=== PATIENT | male | born 1970 | race Caucasian/White ===

== ENCOUNTER 2016-10-25 07:16 | Day surgery (SDC) | payer OTHER ==
[2016-10-22 15:10] VITALS: BMI 36.2
[~2016-10-25 07:16] MED LIST: LACTATED RINGERS 1,000 ML IV SCH
[2016-10-25 07:45] VITALS: TEMP 97
[2016-10-25] MEDS ORDERED: LIDOCAINE 1% 20 ML VIAL (10MG/ML) FOR IV START INTRADERMA ONE (07:53)
[2016-10-25] MEDS ORDERED: PROPOFOL 10 MG/ML 20 ML VIAL IV ONE (08:00)
[2016-10-25 08:03] LABS: Glucose,Whole Blood 179 mg/dL (75-99)
--- NOTE | 2016-10-25 08:23 | P.PCN ---
Date of Procedure: 10/25/16 Procedure(s) Performed: BRIEF HISTORY: Patient is a 46-year-old pleasant white male, scheduled for an elective colonoscopy as a part of screening for colorectal neoplasia. He has a family history of colon cancer diagnosed in his mother at age 50. PROCEDURE PERFORMED: Colonoscopy. PREOPERATIVE DIAGNOSIS: Screening for colon cancer and family history of colon cancer. IV sedation per Anesthesia. PROCEDURE: After informed consent was obtained, the patient, was brought into the endoscopy unit. IV conscious sedation was administered by Anesthesia under continuous monitoring. Initially the Olympus CF-160 flexible video colonoscope was then inserted in the rectum, gradually advanced into the cecum without any difficulty. Careful examination was performed as the scope was gradually being withdrawn. Ileocecal valve and the appendiceal orifice were visualized and appeared normal. Prep was poor in some areas of the colon. Thorough irrigation was performed using irrigation system despite which multiple areas could not be adequately visualized. Mucosa of the cecum, ascending colon, transverse colon, descending colon, sigmoid colon, and rectum appeared normal. Retroflexion was performed in the rectum and no lesions were seen. The patient tolerated the procedure well. IMPRESSION: Normal-appearing colon from rectum to cecum with no evidence of colorectal neoplasia . Poor prep in some areas of the colon precluding adequate visualization. RECOMMENDATIONS: Findings of this examination were discussed with the patient as well as his family. He was advised to have a repeat screening colonoscopy in 5 years because of the family history of colon cancer.
[2016-10-25 08:46] VITALS: BP 137/82; PULSE 80; RESP 18
== END 2016-10-25 09:14 | disposition home or self-care (01) ==
LOC: ORWHC2ENDO 07:16
PROVIDERS: ATTEND Internal Medicine Gastroenterology
DX: Z12.11 Encounter for screening for malignant neoplasm of colon (principal); G47.33 Obstructive sleep apnea (adult) (pediatric); E11.9 Type 2 diabetes mellitus without complications; E07.9 Disorder of thyroid, unspecified; M10.9 Gout, unspecified; Z80.0 Family history of malignant neoplasm of digestive organs; Z79.84 Long term (current) use of oral hypoglycemic drugs; Z79.899 Other long term (current) drug therapy; Z87.891 Personal history of nicotine dependence
CPT/HCPCS: J2704; G0105; 99153

== ENCOUNTER 2023-03-07 18:22 | Inpatient (IN) | payer OTHER ==
[2023-03-07] MEDS ORDERED: VANCOMYCIN IV PER PHARMACY 1 EACH MISC MISCELLANE PRN (19:20)
[2023-03-07] MEDS ORDERED: SODIUM CHLORIDE 0.9% 500 ML 500 ML IV ONE (19:20)
[2023-03-07] MEDS ORDERED: PIPERACILLIN-TAZOBACTAM 3.375 GM in SODIUM CHLORIDE 0.9% 100 ML IVPB STA (19:23)
[2023-03-07] MEDS: SODIUM CHLORIDE 0.9% 1,000 ML IV SCH (19:37)
[2023-03-07 19:41] LABS: ALT 18 U/L (4-49); AST 26 U/L (17-59); African American GFR (CKD) 73 (>60 ml/min/1.73 sqM); Alkaline Phosphatase 52 U/L (38-126); Anion Gap 9 mmol/L; Blood Urea Nitrogen 23 mg/dL (9-20); Calcium 8.8 mg/dL (8.4-10.2); Carbon Dioxide 22 mmol/L (22-30); Chloride 100 mmol/L (98-107); Glucose 111 mg/dL (74-99); Non-African American GFR(CKD) 63 (>60 ml/min/1.73 sqM); Potassium 4.1 mmol/L (3.5-5.1); Sodium 131 mmol/L (137-145); Total Bilirubin 0.8 mg/dL (0.2-1.3); Total Protein 6.3 g/dL (6.3-8.2)
[2023-03-07 19:46] LABS: INR 1.1 (<1.2); Partial Thromboplastin Time 29.8 sec (22.0-30.0); Prothrombin Time 11.2 sec (9.0-12.0)
[2023-03-07 19:56] LABS: Basophils % (A) 0 %; Eosinophils % (A) 0 %; HCT 39.5 % (39.0-53.0); HGB 13.5 gm/dL (13.0-17.5); Lymphocytes # (A) 0.3 k/uL (1.0-4.8); Lymphocytes % (A) 5 %; MCH 30.4 pg (25.0-35.0); MCHC 34.3 g/dL (31.0-37.0); MCV 88.6 fL (80.0-100.0); Mean Platelet Volume 7.5; Monocytes # (A) 0.3 k/uL (0-1.0); Monocytes % (A) 5 %; Neutrophils # (A) 5.7 k/uL (1.3-7.7); Neutrophils % (A) 89 %; Platelet Count 120 k/uL (150-450); RBC 4.45 m/uL (4.30-5.90); RDW 13.6 % (11.5-15.5); WBC 6.4 k/uL (3.8-10.6)
--- NOTE | 2023-03-07 20:00 | XR ---
EXAMINATION TYPE: XR foot complete RT DATE OF EXAM: 03/07/2023 7:39 PM INDICATION: Patient age:Male; 52 years old; Reason for study: great toe infection; PHH. COMPARISON: None TECHNIQUE: The right foot was examined in the AP, oblique, and lateral projections. FINDINGS/IMPRESSION : Degeneration changes of the right first digit metacarpal phalangeal joint with osteophyte formation a nd joint space narrowing. There is posterior subluxation of the toe on lateral view. There is soft ti ssue swelling with subcutaneous gas no osseous erosion at this time to suggest osteomyelitis. No evid ence for fracture. Correlate for soft tissue infection.
[2023-03-07] MEDS ORDERED: NALOXONE 0.4 MG/ML 1 ML VIAL IV PRN (20:39)
[2023-03-07] MEDS ORDERED: HYDROmorphone 0.5 MG/0.5 ML SYRINGE IVP PRN (20:39)
[2023-03-07] MEDS ORDERED: ACETAMINOPHEN TAB 325 MG TAB PO PRN (20:39)
--- NOTE | 2023-03-07 20:45 | ED ---
General Adult HPI - General Chief complaint: Skin/Abscess/Foreign Body Stated complaint: infection R foot,Diabetic Time Seen by Provider: 03/07/23 19:02 Source: patient, RN notes reviewed, old records reviewed Mode of arrival: ambulatory Limitations: no limitations - History of Present Illness Initial comments: 52-year-old male presents for evaluation of right foot pain and swelling. Patient states he's had a chronic wound and does follow with podiatry. He states over the past 24 hours he had significant increased swelling and erythema in the great toe and foot on the right side. He denies fever. He is a diabetic. - Related Data Home Medications Medication Instructions Recorded Confirmed Aleve Unknown Dose 1 tab PO DIRECTED PRN 10/22/16 10/25/16 Levothyroxine Sodium [Synthroid] 150 mcg PO DAILY 10/22/16 10/25/16 Lopid Unknown Dose 1 tab PO BID 10/22/16 10/25/16 Magnesium Unknown Dose 2 tab PO BID 10/22/16 10/25/16 Potassium Unknown Dose 2 tab PO BID 10/22/16 10/25/16 allopurinoL [Zyloprim] 300 mg PO BID 10/22/16 10/25/16 glipiZIDE [Glucotrol] 10 mg PO BID 10/22/16 10/25/16 metFORMIN HCL [Glucophage] 850 mg PO TID 10/22/16 10/25/16 Allergies Allergy/AdvReac Type Severity Reaction Status Date / Time No Known Allergies Allergy Verified 03/07/23 18:34 Review of Systems ROS Statement: Those systems with pertinent positive or pertinent negative responses have been documented in the HPI. ROS Other: All systems not noted in ROS Statement are negative. Past Medical History Past Medical History: Diabetes Mellitus, Sleep Apnea/CPAP/BIPAP, Thyroid Disorder Additional Past Medical History / Comment(s): hx gout, states hyperstenosis of liver History of Any Multi-Drug Resistant Organisms: None Reported Past Surgical History: Cholecystectomy Past Anesthesia/Blood Transfusion Reactions: No Reported Reaction Past Psychological History: No Psychological Hx Reported Smoking Status: Never smoker Past Alcohol Use History: Rare Past Drug Use History: None Reported - Past Family History Mother Family Medical History: Cancer Additional Family Medical History / Comment(s): colon General Exam Limitations: no limitations General appearance: alert, in no apparent distress Head exam: Present: atraumatic, normocephalic Eye exam: Present: normal appearance, PERRL ENT exam: Present: normal exam Neck exam: Present: normal inspection. Absent: tenderness, meningismus Respiratory exam: Present: normal lung sounds bilaterally. Absent: respiratory distress, wheezes Cardiovascular Exam: Present: normal rhythm, tachycardia GI/Abdominal exam: Present: soft. Absent: distended, tenderness Extremities exam: Present: other (Ulceration on the dorsal and pedal surface of the great toe with significant erythema and soft tissue swelling throughout the great toe and foot.) Psychiatric exam: Present: normal affect, normal mood Skin exam: Present: warm, dry Course Vital Signs 03/07/23 18:30 Temperature 98.8 F Pulse Rate 118 H Respiratory 20 Rate Blood Pressure 114/70 O2 Sat by Pulse 96 Oximetry Medical Decision Making - Medical Decision Making Was pt. sent in by a medical professional or institution ([facility], [employer], urgent care, hospital, or retirement...) When possible be specific @ -[Sent in by urgent care Did you speak to anyone other than the patient for history (EMS, parent, family, police, friend...)? What history was obtained from this source @ -No Did you review nursing and triage notes (agree or disagree)? Why? @ -I reviewed and agree with nursing and triage notes Were old charts reviewed (outside hosp., previous admission, EMS record, old EKG, old radiological studies, urgent care reports/EKG's, retirement records)? Report findings @ -No old charts were reviewed Differential Diagnosis (chest pain, altered mental status, abdominal pain women, abdominal pain men, vaginal bleeding, weakness, fever, dyspnea, syncope, hea dache, dizziness, GI bleed, back pain, seizure, CVA, palpatations, mental health, musculoskeletal)? @ Cellulitis, osteomyelitis, necrotizing soft tissue infection EKG interpreted by me (3pts min.). @ -As above X-rays interpreted by me (1pt min.). @ -[Soft tissue swelling with soft tissue gas at the location of ulceration CT interpreted by me (1pt min.). @ -None done U/S interpreted by me (1pt. min.). @ -[Ultrasound for DVT negative for DVT What testing was considered but not performed or refused? (CT, X-rays, U/S, labs)? Why? @ -None What meds were considered but not given or refused? Why? @ -None Did you discuss the management of the patient with other professionals (professionals i.e. , PA, POURED PIPE MAKER, lab, RT, psych nurse, social science teacher, car shunter, teacher, seismology technical officer, residential case manager)? Give summary @ -[Case discussed with sound physician group Was smoking cessation discussed for >3mins.? @ -No Was critical care preformed (if so, how long)? @ -No Were there social determinants of health that impacted care today? How? (Homelessness, low income, unemployed, alcoholism, drug addiction, transportation, low edu. Level, literacy, decrease access to med. care, detention, rehab)? @ -No Was there de-escalation of care discussed even if they declined (Discuss DNR or withdrawal of care, Hospice)? DNR status @ -No What co-morbidities impacted this encounter? (DM, HTN, Smoking, COPD, CAD, Cancer, CVA, ARF, Chemo, Hep., AIDS, mental health diagnosis, sleep apnea, morbid obesity)? @ -[Diabetes Was patient admitted / discharged? Hospital course, mention meds given and route, prescriptions, significant lab abnormalities, going to OR and other pertinent info. @ -[52-year-old male with soft tissue infection of the right great toe and foot. Patient is tachycardic with otherwise stable vitals. He is afebrile. He has a normal white blood cell count, negative lactic acid. Patient will be admitted for IV antibiotics. He started on Zosyn and vancomycin. He'll be admitted to internal medicine with vascular surgery on consult. Undiagnosed new problem with uncertain prognosis? @ -No Drug Therapy requiring intensive monitoring for toxicity (Heparin, Nitro, Insulin, Cardizem)? @ -No Were any procedures done? @ -No Diagnosis/symptom? @ -[Diabetic foot infection with ulceration and cellulitis Acute, or Chronic, or Acute on Chronic? @ -[Acute Uncomplicated (without systemic symptoms) or Complicated (systemic symptoms)? @ -default Side effects of treatment? @ -No Exacerbation, Progression, or Severe Exacerbation? @ -No Poses a threat to life or bodily function? How? (Chest pain, USA, MA, pneumonia, PE, COPD, DKA, ARF, appy, cholecystitis, CVA, Diverticulitis, Homicidal, Suicidal, threat to staff... and all critical care pts) @ -Yes, sepsis - Lab Data Result diagrams: 03/07/23 19:15 03/07/23 19:15 Lab Results 03/07/23 03/07/23 03/07/23 Range/Units 19:15 19:15 19:15 WBC 6.4 (3.8-10.6) k/uL RBC 4.45 (4.30-5.90) m/uL Hgb 13.5 (13.0-17.5) gm/dL Hct 39.5 (39.0-53.0) % MCV 88.6 (80.0-100.0) fL MCH 30.4 (25.0-35.0) pg MCHC 34.3 (31.0-37.0) g/dL RDW 13.6 (11.5-15.5) % Plt Count 120 L (150-450) k/uL MPV 7.5 Neutrophils % 89 % Lymphocytes % 5 % Monocytes % 5 % Eosinophils % 0 % Basophils % 0 % Neutrophils # 5.7 (1.3-7.7) k/uL Lymphocytes # 0.3 L (1.0-4.8) k/uL Monocytes # 0.3 (0-1.0) k/uL Eosinophils # 0.0 (0-0.7) k/uL Basophils # 0.0 (0-0.2) k/uL PT 11.2 (9.0-12.0) sec INR 1.1 (<1.2) APTT 29.8 (22.0-30.0) sec Sodium 131 L (137-145) mmol/L Potassium 4.1 (3.5-5.1) mmol/L Chloride 100 (98-107) mmol/L Carbon Dioxide 22 (22-30) mmol/L Anion Gap 9 mmol/L BUN 23 H (9-20) mg/dL Creatinine 1.30 H (0.66-1.25) mg/dL Est GFR (CKD-EPI)AfAm 73 (>60 ml/min/1.73 sqM) Est GFR (CKD-EPI)NonAf 63 (>60 ml/min/1.73 sqM) Glucose 111 H (74-99) mg/dL Plasma Lactic Acid Pilo (0.7-2.0) mmol/L Calcium 8.8 (8.4-10.2) mg/dL Total Bilirubin 0.8 (0.2-1.3) mg/dL AST 26 (17-59) U/L ALT 18 (4-49) U/L Alkaline Phosphatase 52 (38-126) U/L Total Protein 6.3 (6.3-8.2) g/dL Albumin 4.0 (3.5-5.0) g/dL 03/07/23 Range/Units 19:15 WBC (3.8-10.6) k/uL RBC (4.30-5.90) m/uL Hgb (13.0-17.5) gm/dL Hct (39.0-53.0) % MCV (80.0-100.0) fL MCH (25.0-35.0) pg MCHC (31.0-37.0) g/dL RDW (11.5-15.5) % Plt Count (150-450) k/uL MPV Neutrophils % % Lymphocytes % % Monocytes % % Eosinophils % % Basophils % % Neutrophils # (1.3-7.7) k/uL Lymphocytes # (1.0-4.8) k/uL Monocytes # (0-1.0) k/uL Eosinophils # (0-0.7) k/uL Basophils # (0-0.2) k/uL PT (9.0-12.0) sec INR (<1.2) APTT (22.0-30.0) sec Sodium (137-145) mmol/L Potassium (3.5-5.1) mmol/L Chloride (98-107) mmol/L Carbon Dioxide (22-30) mmol/L Anion Gap mmol/L BUN (9-20) mg/dL Creatinine (0.66-1.25) mg/dL Est GFR (CKD-EPI)AfAm (>60 ml/min/1.73 sqM) Est GFR (CKD-EPI)NonAf (>60 ml/min/1.73 sqM) Glucose (74-99) mg/dL Plasma Lactic Acid Pilo 1.1 (0.7-2.0) mmol/L Calcium (8.4-10.2) mg/dL Total Bilirubin (0.2-1.3) mg/dL AST (17-59) U/L ALT (4-49) U/L Alkaline Phosphatase (38-126) U/L Total Protein (6.3-8.2) g/dL Albumin (3.5-5.0) g/dL Disposition Clinical Impression: Cellulitis, Diabetic foot infection Disposition: ADMITTED IP TO THIS HOSP Condition: Stable Is patient prescribed a controlled substance at d/c from ED?: No Referrals: Torrey Mancilla MD [Primary Care Provider] - 1-2 days Time of Disposition: 20:45
--- NOTE | 2023-03-07 20:56 | US ---
EXAMINATION TYPE: US venous doppler duplex LE RT DATE OF EXAM: 03/07/2023 8:28 PM COMPARISON: NONE CLINICAL INDICATION: Male, 52 years old with history of pain and swelling; redness/edema right great toe SIDE PERFORMED: Right TECHNIQUE: The lower extremity deep venous system is examined utilizing real time linear array sonog roger with graded compression, doppler sonography and color-flow sonography. VESSELS IMAGED: Common Femoral Vein Deep Femoral Vein Greater Saphenous Vein * Femoral Vein Popliteal Vein Small Saphenous Vein * Proximal Calf Veins (* superficial vessels) Right Leg: no evidence of DVT IMPRESSION: Grayscale, color doppler, spectral doppler imaging performed of the deep veins of the lo wer extremities. There is normal flow, compressibility, vascular waveforms.
[2023-03-07] MEDS ORDERED: VANCOMYCIN 2,500 MG in SODIUM CHLORIDE 0.9% 500 ML 500 ML IVPB ONE (21:00)
--- NOTE | 2023-03-07 22:54 | P.HPIM ---
History of Present Illness H&P Date: 03/07/23 Patient is a 52-year-old male with a PMH of type II DM, hypertension, hypothyroidism who presented to the emergency room with complaints of right foot swelling and right great toe ulceration. The patient reports that initially noticed an ulceration on his right great toe roughly 2 months ago which gradually worsened. He has been following with a metal riveter but states that over the past 2 days, the swelling dramatically increased. He reports that his last A1c was 6.5 but that he has been battling diabetes for the past 20 years. He denies experiencing any pain at the site. Denies experiencing fever or chills. Denied chest discomfort, shortness breath, nausea, vomiting. In the emergency room, a right foot x-ray revealed findings consistent with soft tissue swelling and subcutaneous gas without findings to suggest osteomyelitis or fracture. Venous Doppler of the right lower extremity was negative for DVT. Laboratory evaluation was remarkable for thrombocytopenia at 120, sodium 131, creatinine 1.3, lactic acid 1.1, and glucose 111. ED documentation reviewed and case discussed with ED provider. Review of systems: Pertinent positives and negatives as discussed in HPI, a complete review of systems was performed and all other systems are negative. Physical examination: Vital signs reviewed General: non toxic, no distress, appears at stated age, normal weight Derm: Right great toe medial aspect ulceration 2 cm with significant surrounding edema and erythema extending to mid foot, warm Head: atraumatic, normocephalic, symmetric Eyes: EOMI, no lid lag, anicteric sclera, pupils equal round reactive to light ENT: Nose and ears atraumatic Neck: No cervical lymphadenopathy, trachea midline, supple Mouth: no lip lesion, mucus membranes moist Cardiovascular: S1S2 reg, no murmur, positive dorsalis pedis pulse bilateral, 1+ ryanne LE pitting edema Lungs: CTA bilateral, no rhonchi, no rales, no accessory muscle use Abdominal: soft, nontender to palpation, no guarding Ext: muscle strength 5 out of 5 in all 4 extremities grossly, no gross muscle atrophy, no contractures Neuro: CN II-XI grossly intact, no gross focal neuro deficits Psych: Alert, oriented, appropriate affect Assessment: Diabetic foot ulcer Thrombocytopenia, somewhat worse than baseline Hyponatremia Kidney injury Imaging: In the emergency room, a right foot x-ray revealed findings consistent with soft tissue swelling and subcutaneous gas without findings to suggest osteomyelitis or fracture. Venous Doppler of the right lower extremity was negative for DVT. Data Review: Laboratory evaluation was remarkable for thrombocytopenia at 120, sodium 131, creatinine 1.3, lactic acid 1.1, and glucose 111. Plan: Vascular surgery consulted Follow-up blood cultures Continue with broad-spectrum IV antibiotics including IV Zosyn and vancomycin Pain control with Dilaudid Monitor BMP and CBC. DVT prophylaxis: Lovenox subq The patient is admitted with an anticipated greater than 2 midnight stay for evaluation of diabetic foot ulcer CODE STATUS: Full Code Discussed with: Patient Anticipated discharge place: Home Past Medical History Past Medical History: Diabetes Mellitus, Sleep Apnea/CPAP/BIPAP, Thyroid Disorder Additional Past Medical History / Comment(s): hx gout, states hyperstenosis of liver History of Any Multi-Drug Resistant Organisms: None Reported Past Surgical History: Cholecystectomy Past Anesthesia/Blood Transfusion Reactions: No Reported Reaction Past Psychological History: No Psychological Hx Reported Smoking Status: Never smoker Past Alcohol Use History: Rare Past Drug Use History: None Reported - Past Family History Mother Family Medical History: Cancer Additional Family Medical History / Comment(s): colon Medications and Allergies Home Medications Medication Instructions Recorded Confirmed Type metFORMIN HCL [Glucophage] 850 mg PO TID-W/MEALS 10/22/16 03/07/23 History Acetaminophen [Tylenol Extra 1,000 mg PO Q6H PRN 03/07/23 03/07/23 History Strength] Empagliflozin [Jardiance] 10 mg PO DAILY 03/07/23 03/07/23 History Insulin Glargine,Hum.rec.anlog 12 unit SQ HS 03/07/23 03/07/23 History [Andrea Pedraza U-100] Insulin Regular, Human [Novolin R] See Protocol SQ TID-W/MEALS 03/07/23 03/07/23 History Levothyroxine Sodium [Synthroid] 200 mcg PO DAILY 03/07/23 03/07/23 History Magnesium Oxide [Mag-Ox] 400 mg PO DAILY 03/07/23 03/07/23 History Naproxen Sodium [Aleve] 440 mg PO BID PRN 03/07/23 03/07/23 History Pioglitazone [Actos] 45 mg PO DAILY 03/07/23 03/07/23 History lisinopriL [Prinivil] 20 mg PO DAILY 03/07/23 03/07/23 History Allergies Allergy/AdvReac Type Severity Reaction Status Date / Time No Known Allergies Allergy Verified 03/07/23 20:45 Physical Exam Vitals: Vital Signs Temp Pulse Resp BP Pulse Ox 03/07/23 18:30 98.8 F 118 H 20 114/70 96 Intake and Output 03/07/23 03/07/23 03/07/23 06:59 14:59 22:59 Other: Weight 122.47 kg Results CBC & Chem 7: 03/07/23 19:15 03/07/23 19:15 Labs: Abnormal Lab Results - Last 24 Hours (Table) 03/07/23 03/07/23 Range/Units 19:15 19:15 Plt Count 120 L (150-450) k/uL Lymphocytes # 0.3 L (1.0-4.8) k/uL Sodium 131 L (137-145) mmol/L BUN 23 H (9-20) mg/dL Creatinine 1.30 H (0.66-1.25) mg/dL Glucose 111 H (74-99) mg/dL
[2023-03-08] MEDS: PIPERACILLIN-TAZOBACTAM 3.375 GM in SODIUM CHLORIDE 0.9% 100 ML IVPB SCH ×3 (02:09→17:10)
[2023-03-08] MEDS: SODIUM CHLORIDE 0.9% 1,000 ML IV SCH ×2 (03:25→13:08)
[2023-03-08] MEDS: VANCOMYCIN 2,250 MG in SODIUM CHLORIDE 0.9% 500 ML 500 ML IVPB SCH ×2 (07:53→21:13)
[2023-03-08 08:03] LABS: Glucose,Whole Blood 155 mg/dL (70-110)
[2023-03-08] MEDS: ENOXAPARIN 40 MG/0.4 ML SYRINGE SQ SCH (09:09)
--- NOTE | 2023-03-08 13:19 | P.GSCN ---
History of Present Illness Consult date: 03/08/23 History of present illness: Colin is a 52-year-old male with diabetes who has had injury and issue to his right lower extremity back in 2020. He got his forefoot crushed, at that time he has been dealing with issues and concerns since then. Apparently there was no broken bones or fragments that he relates at that time however he ended up with wounds that it had continued issues healing. Initially it started to get healed and then in the fall of last year, he had interruption of the wound itself and discomfort and therefore ended up with imaging and reported oste omyelitis per the patient. He was given PICC line antibiotics and other the wound was healing. 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 He denies any significant pain and has some degree of neuropathy. He denies any fevers, chills, nausea or vomiting Past Medical History Past Medical History: Diabetes Mellitus, Sleep Apnea/CPAP/BIPAP, Thyroid Disorder Additional Past Medical History / Comment(s): hx gout, states hyperstenosis of liver History of Any Multi-Drug Resistant Organisms: None Reported Past Surgical History: Cholecystectomy Past Anesthesia/Blood Transfusion Reactions: No Reported Reaction Past Psychological History: No Psychological Hx Reported Smoking Status: Never smoker Past Alcohol Use History: Rare Past Drug Use History: None Reported - Past Family History Mother Family Medical History: Cancer Additional Family Medical History / Comment(s): colon Medications and Allergies Home Medications Medication Instructions Recorded Confirmed Type metFORMIN HCL [Glucophage] 850 mg PO TID-W/MEALS 10/22/16 03/07/23 History Acetaminophen [Tylenol Extra 1,000 mg PO Q6H PRN 03/07/23 03/07/23 History Strength] Empagliflozin [Jardiance] 10 mg PO DAILY 03/07/23 03/07/23 History Insulin Glargine,Hum.rec.anlog 12 unit SQ HS 03/07/23 03/07/23 History [Andrea Pedraza U-100] Insulin Regular, Human [Novolin R] See Protocol SQ TID-W/MEALS 03/07/23 03/07/23 History Levothyroxine Sodium [Synthroid] 200 mcg PO DAILY 03/07/23 03/07/23 History Magnesium Oxide [Mag-Ox] 400 mg PO DAILY 03/07/23 03/07/23 History Naproxen Sodium [Aleve] 440 mg PO BID PRN 03/07/23 03/07/23 History Pioglitazone [Actos] 45 mg PO DAILY 03/07/23 03/07/23 History lisinopriL [Prinivil] 20 mg PO DAILY 03/07/23 03/07/23 History Allergies Allergy/AdvReac Type Severity Reaction Status Date / Time No Known Allergies Allergy Verified 03/07/23 20:45 Surgical - Exam Vital Signs Temp Pulse Resp BP Pulse Ox 98.8 F 118 H 20 114/70 96 03/07/23 18:30 03/07/23 18:30 03/07/23 18:30 03/07/23 18:30 03/07/23 18:30 Gen. is a pleasant and cooperative male in no acute distress. HEENT is normal cephalic, atraumatic, excellent motion intact. Heart appears regular. Lungs are clear. Abdomen soft. Some additional clubbing or cyanosis. The right great toe is significantly bulbous with erythema in the forefoot. There is a wound with eschar at the plantar portion and a wound with eschar at the dorsum of the great toe. No fluctuance. No purulent drainage. Palpable DP PT pulses. With informed verbal consent, the right great toe was prepped and draped in usual sterile fashion. A preprocedure timeout was performed, all parties are in agreement. Using a scalpel, the eschar was excised from the dorsum of the great toe revealing some chronically infected appearing tissue. This was excised. This did not seem to tunnel our track anywhere, it was approximately 0.5 x 0.5 x 0.7 cm to the level of the subcutaneous tissue after completion of debridement. On the plantar portion of the foot, there was moderate amount of callus. This was excised sharply. The wound itself was a debridement of his eschar and tissue. It was relatively superficial through the dermis tissue, it measured 1.5 x 0.3 x 0.3. It did not appear to tunnel our track in any direction. Dressings were placed. The patient tolerated the procedure well. Results Labs and x-ray reviewed. The area of reported gas on x-ray is in correlation wi th the area of ulceration at the dorsum of the great toe. No crepitus or other evidence of gas on physical exam - Labs 03/07/23 19:15 03/07/23 19:15 Abnormal Lab Results - Last 24 Hours (Table) 03/07/23 03/07/23 03/08/23 Range/Units 19:15 19:15 08:01 Plt Count 120 L (150-450) k/uL Lymphocytes # 0.3 L (1.0-4.8) k/uL Sodium 131 L (137-145) mmol/L BUN 23 H (9-20) mg/dL Creatinine 1.30 H (0.66-1.25) mg/dL Glucose 111 H (74-99) mg/dL POC Glucose (mg/dL) 155 H (70-110) mg/dL Diabetes panel 03/07/23 Range/Units 19:15 Sodium 131 L (137-145) mmol/L Potassium 4.1 (3.5-5.1) mmol/L Chloride 100 (98-107) mmol/L Carbon Dioxide 22 (22-30) mmol/L BUN 23 H (9-20) mg/dL Creatinine 1.30 H (0.66-1.25) mg/dL Glucose 111 H (74-99) mg/dL Calcium 8.8 (8.4-10.2) mg/dL AST 26 (17-59) U/L ALT 18 (4-49) U/L Alkaline Phosphatase 52 (38-126) U/L Total Protein 6.3 (6.3-8.2) g/dL Albumin 4.0 (3.5-5.0) g/dL Calcium panel 03/07/23 Range/Units 19:15 Calcium 8.8 (8.4-10.2) mg/dL Albumin 4.0 (3.5-5.0) g/dL Pituitary panel 03/07/23 Range/Units 19:15 Sodium 131 L (137-145) mmol/L Potassium 4.1 (3.5-5.1) mmol/L Chloride 100 (98-107) mmol/L Carbon Dioxide 22 (22-30) mmol/L BUN 23 H (9-20) mg/dL Creatinine 1.30 H (0.66-1.25) mg/dL Glucose 111 H (74-99) mg/dL Calcium 8.8 (8.4-10.2) mg/dL Adrenal panel 03/07/23 Range/Units 19:15 Sodium 131 L (137-145) mmol/L Potassium 4.1 (3.5-5.1) mmol/L Chloride 100 (98-107) mmol/L Carbon Dioxide 22 (22-30) mmol/L BUN 23 H (9-20) mg/dL Creatinine 1.30 H (0.66-1.25) mg/dL Glucose 111 H (74-99) mg/dL Calcium 8.8 (8.4-10.2) mg/dL Total Bilirubin 0.8 (0.2-1.3) mg/dL AST 26 (17-59) U/L ALT 18 (4-49) U/L Alkaline Phosphatase 52 (38-126) U/L Total Protein 6.3 (6.3-8.2) g/dL Albumin 4.0 (3.5-5.0) g/dL Assessment and Plan Assessment: Diabetic foot infection right great toe History of osteomyelitis, likely chronic recurrent at this point Diabetes Plan: I had a long discussion with Colin regarding the likelihood of there being chronic osteomyelitis in the great toe, I do believe further imaging is necessary to evaluate for ongoing recommendations. He needs infectious disease consultation as he will likely need long-term IV antibiotics regardless of going forward with amputation or continued attempt at salvage. We discussed the possibility of being aggressive with local wound care, possible hyperbaric oxygen therapy here at the [facility] wound care facility. He would like to try anything he can as he is very hesitant to undergo toe amputation, at this time there is no emergent surgical indication. Would consider MRI of the foot to evaluate the bony involvement and extent of the infection. At this time continue IV antibiotics. Patient seemingly understands the plan and is willing to proceed.
[2023-03-08] MEDS ORDERED: DEXTROSE 50% SYRINGE 50 ML IVP PRN ×2 (15:36)
--- NOTE | 2023-03-08 15:50 | P.PN ---
Subjective Progress Note Date: 03/08/23 Hospital course: Patient is a very pleasant 52-year-old male with a past medical history of type 2 insulin-dependent diabetes mellitus, hypertension, hypothyroidism, and obstructive sleep apnea. 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 Patient underwent full evaluation in the emergency department. Labs completed and reviewed. CBC showing thrombocytopenia with bili count of 120. Coagulation profile normal findings. BMP revealing mild hyponatremia with sodium of 131 and slight elevation of renal function with BUN 23, creatinine 1.30, and GFR of 63 with baseline creatinine of 1.1. Lactic acid normal findings at 1.1. Glucose 111. Liver profile unremarkable. X-ray right foot showing degenerative changes of the right first digit metacarpal phalangeal joint with osteophyte formation and joint space narrowing, posterior subluxation of the right great toe and soft tissue swelling with subcutaneous gas. Venous Doppler also completed of right lower extremity which was negative for DVT. Patient was started on IV ant ibiotics of vancomycin and Zosyn and admitted under our services with consultation to vascular surgery. Physical examination: General: non toxic, no distress, appears at stated age Derm: warm, dry Head: atraumatic, normocephalic, symmetric Eyes: EOMI, no lid lag, anicteric sclera Mouth: no lip lesion, mucus membranes moist Cardiovascular: S1S2 reg, no murmur, positive posterior tibial pulse bilateral, Lungs: CTA bilateral, no rhonchi, no rales , no accessory muscle use Abdominal: soft, nontender to palpation, no guarding, no appreciable organomegaly Ext: no gross muscle atrophy, 1+ pitting bilateral lower extremity edema, no contractures. Dressing in place right foot, clean, dry, and intact. Neuro: CN II-XI grossly intact, no focal neuro deficits Psych: Alert, oriented, appropriate affect Assessment: Infected Diabetic ulcer of right foot Thrombocytopenia, somewhat worse than baseline Hyponatremia Insulin-dependent diabetes mellitus -Vascular surgery following and reviewed documentation in chart. -Order placed for consult infectious disease. -Continue with IV antibiotics vancomycin and Zosyn pending further recommendations from infectious disease physician and/or culture results. -Monitor vancomycin trough and renal function closely to monitor for any signs of vancomycin associated renal toxicity. -Follow-up on blood culture and wound culture -Symptomatic care and pain management. Data Review: Labs completed and reviewed. CBC showing thrombocytopenia with bili count of 120. Coagulation profile normal findings. BMP revealing mild hyponatremia with sodium of 131 and slight elevation of renal function with BUN 23, creatinine 1.30, and GFR of 63 with baseline creatinine of 1.1. Lactic acid normal findings at 1.1. Glucose 111. Liver profile unremarkable. Review of imaging: -X-ray right foot showing degenerative changes of the right first digit metacarpal phalangeal joint with osteophyte formation and joint space narrowing, posterior subluxation of the right great toe and soft tissue swelling with subcutaneous gas. -Venous Doppler also completed of right lower extremity which was negative for DVT. DVT prophylaxis: Lovenox Anticipated discharge: Clinical course to determine Anticipated discharge place: Home Patient was seen independently by Nurse Pracitioner. This document was prepared using [email or web address] dictation software. Please allow for errors in health promotion manager, while rare they do occur. I reviewed the documentation as provided by the SHANNAN above, who is the original author of this note. I agree with the documented assessment and plan, with the following changes: none Objective - Vital Signs Vital signs: Vital Signs Temp 98.8 F 03/07/23 18:30 Pulse 90 03/08/23 06:00 Resp 18 03/08/23 06:00 BP 105/66 03/08/23 06:00 Pulse Ox 96 03/08/23 06:00 FiO2 Intake & Output 03/07/23 03/08/23 03/08/23 18:59 06:59 18:59 Weight 122.47 kg - Labs CBC & Chem 7: 03/09/23 05:32 03/10/23 06:29 Labs: Abnormal Lab Results - Last 24 Hours (Table) 03/07/23 03/07/23 03/08/23 Range/Units 19:15 19:15 08:01 Plt Count 120 L (150-450) k/uL Lymphocytes # 0.3 L (1.0-4.8) k/uL Sodium 131 L (137-145) mmol/L BUN 23 H (9-20) mg/dL Creatinine 1.30 H (0.66-1.25) mg/dL Glucose 111 H (74-99) mg/dL POC Glucose (mg/dL) 155 H (70-110) mg/dL
[2023-03-08 16:48] LABS: Glucose,Whole Blood 161 mg/dL (70-110)
[2023-03-08] MEDS: INSULIN ASPART (NovoLOG) 100 UNIT/ML VIAL SQ SCH ×2 (17:09→21:12)
[2023-03-08 20:39] LABS: Glucose,Whole Blood 185 mg/dL (70-110)
[2023-03-08] MEDS: INSULIN DETEMIR (LEVEMIR) 100 UNIT/ML SYR SQ SCH (21:13)
--- NOTE | 2023-03-08 22:19 | P.CONS ---
History of Present Illness - Reason for Consult Consult date: 03/08/23 Osteomyelitis Requesting physician: Ronny Coleman - Chief Complaint Increasing swelling redness to the right foot x few days - History of Present Illness Patient is a 52-year-old male with a past medical history significant for diabetes mellitus hypertension hypothyroidism presenting to the hospital for evaluation of increasing swelling and redness to the right foot especially to the right big toe apparently the patient did have ulceration on the right big toe that has been going on for about 2 months and the patient has been 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 however over the last 2 days the patient noticed having worsening swelling and redness that was spreading to his right foot patient did have underlying diabetic neuropathy has denies significant pain patient did have some did denies high-grade fever on presentation to the hospital the patient was afebrile he did have a low-grade fever of 99.2 F this morning patient did have a normal white count BUN and creatinine has been mildly elevated lactic is 1.1 liver exams are normal patient did have an x-ray of the foot degenerative changes of the right first digit metacarpophalangeal joint soft tissue swelling with subcutaneous gas no evidence of fracture patient was started on vancomycin and Zosyn infectious disease was consulted for further management of antibiotic therapy Review of Systems Positive point and negatives has been mentioned in the HPI, complete review of systems was performed and all other systems are negative Past Medical History Past Medical History: Diabetes Mellitus, Sleep Apnea/CPAP/BIPAP, Thyroid Disorde r Additional Past Medical History / Comment(s): hx gout, states hyperstenosis of liver History of Any Multi-Drug Resistant Organisms: None Reported Past Surgical History: Cholecystectomy Past Anesthesia/Blood Transfusion Reactions: No Reported Reaction Past Psychological History: No Psychological Hx Reported Smoking Status: Never smoker Past Alcohol Use History: Rare Past Drug Use History: None Reported - Past Family History Mother Family Medical History: Cancer Additional Family Medical History / Comment(s): colon Medications and Allergies Home Medications Medication Instructions Recorded Confirmed Type metFORMIN HCL [Glucophage] 850 mg PO TID-W/MEALS 10/22/16 03/07/23 History Acetaminophen [Tylenol Extra 1,000 mg PO Q6H PRN 03/07/23 03/07/23 History Strength] Empagliflozin [Jardiance] 10 mg PO DAILY 03/07/23 03/07/23 History Insulin Glargine,Hum.rec.anlog 12 unit SQ HS 03/07/23 03/07/23 History [Varinderaglskye Pedraza U-100] Insulin Regular, Human [Novolin R] See Protocol SQ TID-W/MEALS 03/07/23 03/07/23 History Levothyroxine Sodium [Synthroid] 200 mcg PO DAILY 03/07/23 03/07/23 History Magnesium Oxide [Mag-Ox] 400 mg PO DAILY 03/07/23 03/07/23 History Naproxen Sodium [Aleve] 440 mg PO BID PRN 03/07/23 03/07/23 History Pioglitazone [Actos] 45 mg PO DAILY 03/07/23 03/07/23 History lisinopriL [Prinivil] 20 mg PO DAILY 03/07/23 03/07/23 History metroNIDAZOLE [Flagyl] 500 mg PO TID #90 tab 03/11/23 Rx Allergies Allergy/AdvReac Type Severity Reaction Status Date / Time No Known Allergies Allergy Verified 03/07/23 20:45 Physical Exam Vitals: Vital Signs Temp Pulse Pulse Resp BP BP Pulse Ox 03/08/23 13:57 99.2 F 89 18 129/72 95 03/08/23 13:05 97.8 F 99 18 116/63 95 03/08/23 09:22 70 18 106/64 98 03/08/23 06:00 90 18 105/66 96 03/08/23 02:38 96 18 109/59 97 03/08/23 00:05 82 14 112/66 98 03/07/23 18:30 98.8 F 118 H 20 114/70 96 Intake and Output 03/08/23 03/08/23 03/08/23 06:59 14:59 22:59 Intake Total 118 Balance 118 Intake: Oral 118 Other: # Voids 1 Weight 122.47 kg GENERAL DESCRIPTION: Middle-aged male lying in bed, no distress. No tachypnea or accessory muscle of respiration use. HEENT: Shows Pallor , no scleral icterus. Oral mucous membrane is dry. No pharyngeal erythema or thrush NECK: Trachea central, no thyromegaly. LUNGS: Unlabored breathing. Clear to auscultation anteriorly. No wheeze or crackle. HEART: S1, S2, regular rate and rhythm. No loud murmur ABDOMEN: Soft, no tenderness , guarding or rigidity, no organomegaly EXTREMITIES: Right foot that has swelling redness with ulceration on the plantar aspect at the base of the big toe foul-smelling drainage SKIN: No rash, no masses palpable. NEUROLOGICAL: The patient is awake, alert, oriented x3, mood and affect normal. Results CBC & Chem 7: 03/11/23 05:49 03/11/23 05:49 Labs: Abnormal Lab Results - Last 24 Hours (Table) 03/07/23 03/07/23 03/08/23 Range/Units 19:15 19:15 08:01 Plt Count 120 L (150-450) k/uL Lymphocytes # 0.3 L (1.0-4.8) k/uL Sodium 131 L (137-145) mmol/L BUN 23 H (9-20) mg/dL Creatinine 1.30 H (0.66-1.25) mg/dL Glucose 111 H (74-99) mg/dL POC Glucose (mg/dL) 155 H (70-110) mg/dL 03/08/23 Range/Units 16:46 Plt Count (150-450) k/uL Lymphocytes # (1.0-4.8) k/uL Sodium (137-145) mmol/L BUN (9-20) mg/dL Creatinine (0.66-1.25) mg/dL Glucose (74-99) mg/dL POC Glucose (mg/dL) 161 H (70-110) mg/dL Assessment and Plan (1) Diabetic foot infection Status: Acute Code(s): E11.628 - TYPE 2 DIABETES MELLITUS WITH OTHER SKIN COMPLICATIONS; L08.9 - LOCAL INFECTION OF THE SKIN AND SUBCUTANEOUS TISSUE, UNSP SNOMED Code(s): 763420185 (2) Osteomyelitis Status: Acute Code(s): M86.9 - OSTEOMYELITIS, UNSPECIFIED SNOMED Code(s): 23505396 Plan: 1patient with extensive right diabetic foot infection with with significant swelling and redness of the right great toe with erythema extending to the dorsal aspect of the right foot with rapid progression is highly suspicious for gram-positive/chest streptococcal infection 2-patient would benefit from CT admission evidence of any abscess that may need to be drained 3-continue patient on vancomycin however discontinue Zosyn decrease risk of ne phrotoxicity and add Unasyn to cover for the gram-negative anaerobes 4-check inflammatory markers We will follow on clinical condition and cultures to further adjust medication if needed Thank you for this consultation we will follow the patient along with you Time with Patient: Greater than 30
[2023-03-09] MEDS: AMPICILLIN-SULBACTAM 3 GM in SODIUM CHLORIDE 0.9% 100 ML IVPB SCH ×4 (00:36→17:00)
[2023-03-09] MEDS: SODIUM CHLORIDE 0.9% 1,000 ML IV SCH ×3 (04:57→05:33)
[2023-03-09 06:39] LABS: Glucose,Whole Blood 143 mg/dL (70-110)
[2023-03-09] MEDS: INSULIN ASPART (NovoLOG) 100 UNIT/ML VIAL SQ SCH ×4 (06:44→22:54)
[2023-03-09] MEDS: ENOXAPARIN 40 MG/0.4 ML SYRINGE SQ SCH (08:59)
[2023-03-09] MEDS: VANCOMYCIN 2,250 MG in SODIUM CHLORIDE 0.9% 500 ML 500 ML IVPB SCH ×2 (08:59→20:25)
[2023-03-09] MEDS: LEVOTHYROXINE 100 MCG TAB PO SCH (08:59)
[2023-03-09] MEDS: lisinopriL 20 MG TAB PO SCH (08:59)
[2023-03-09] MEDS: DAPAGLIFLOZIN PROPANEDIOL 10 MG TABLET PO SCH (08:59)
[2023-03-09 09:18] LABS: HCT 37.5 % (39.6-50.0); HGB 12.2 d/dL (12.0-15.0); MCHC 32.5 d/dL (32.0-37.0); MCV 92.4 FL (80.0-97.0); Mean Platelet Volume 9.4 FL (9.5-12.2); NRBC Per 100 WBC 0 X 10*3/uL (0.00-0.01); Platelet Count 114 X 10*3/uL (140-440); RBC 4.06 X 10*6/uL (4.40-5.60); RDW 13.1 % (11.5-14.5); WBC 4.45 X 10*3/uL (4.50-10.00)
[2023-03-09 09:33] LABS: ALT 11 U/L (10-49); AST 12 U/L (14-35); Albumin 3.6 d/dL (3.8-4.9); Albumin/Globulin Ratio 1.71 Ratio (1.60-3.17); Alkaline Phosphatase 54 U/L (41-126); BUN/Creat Ratio 16.31 Ratio (12.00-20.00); Blood Urea Nitrogen 21.2 mg/dL (9.0-27.0); Calcium 9.1 mg/dL (8.7-10.3); Carbon Dioxide 23.4 mmol/L (21.6-31.8); Chloride 104 mmol/L (96-109); Globulin 2.1 d/dL (1.6-3.3); Glucose 149 mg/dL (70-110); Potassium 5.1 mmol/L (3.5-5.5); Sodium 137 mmol/L (135-145); Total Bilirubin 0.3 mg/dL (0.3-1.2); Total Protein 5.7 d/dL (6.2-8.2)
[2023-03-09 09:51] LABS: Erythrocyte Sedimentation Rate 52 mm/Hr (0-20)
[2023-03-09 11:43] LABS: Glucose,Whole Blood 178 mg/dL (70-110)
--- NOTE | 2023-03-09 16:16 | CT ---
EXAMINATION TYPE: CT foot RT wo con CT DLP: 356.8 mGycm, Automated exposure control for dose reduction was used. DATE OF EXAM: 03/09/2023 9:57 AM COMPARISON: Extremity radiograph 03/07/2023 CLINICAL INDICATION:Male, 52 years old with history of abscess; PHH, abscess of RT foot, pt diabetic TECHNIQUE: Axial images were obtained of the right foot . Additional coronal and sagittal reformatte d images and soft tissue and bone window were obtained for review. 3-D reconstruction was created on a separate workstation. Contrast used: None Oral contrast used: None FINDINGS: There is posterior subluxation/dislocation of the first digit metatarsophalangeal joint. There is ass ociated degeneration changes of the sesamoids with subchondral cystic change and irregularity to the first metatarsal head with some areas of ill-defined cortex most pronounced on the first and second d igits. Soft tissue edema is seen throughout and surrounding the first digit. Suspected underlying brennan nt effusion involving the first digit metatarsophalangeal joint. Second digit metatarsophalangeal brennan nt is also suspicious for joint effusion and erosion of the adjacent cortex. Series 204 image 66 for the second digit metatarsal head and series 204 image 64 for the first digit metatarsal head. There i s erosive change to the first digit proximal phalanx also present on these sequences series 204 image 63, 64. No definitive organizing fluid collection to suggest abscess given this noncontrast exam. Osteoporosi s changes throughout the joints of the foot with osteophyte formation joint space narrowing. IMPRESSION: 1. Suspected osteomyelitis involving the first and second digit metatarsals near the heads also susp ected involvement of the first and second digit metatarsophalangeal joints. Subtle erosive changes to the first digit phalanx base also suggestive of osteomyelitis. Soft tissue swelling around these brennan nts more pronounced on the first digit is present. 2. Posterior subluxation/dislocation of the first digit at the metatarsophalangeal joint. 3. Limit evaluation for abscess given noncontrast technique. Consider evaluation with MRI given diff use soft tissue edema swelling.
--- NOTE | 2023-03-09 16:18 | P.PN ---
Subjective Progress Note Date: 03/09/23 Hospital course: Patient is a very pleasant 52-year-old male with a past medical history of type 2 insulin-dependent diabetes mellitus, hypertension, hypothyroidism, and obstructive sleep apnea. Her department on 03/07/23 with a chief complaint of right foot pain, swelling, and infection reported to progressively worsen over the past 2 months despite outpatient treatment with director on air. Patient underwent full evaluation in the emergency department. Labs completed and reviewed. CBC showing thrombocytopenia with bili count of 120. Coagulation profile normal findings. BMP revealing mild hyponatremia with sodium of 131 and slight elevation of renal function with BUN 23, creatinine 1.30, and GFR of 63 with baseline creatinine of 1.1. Lactic acid normal findings at 1.1. Glucose 111. Liver profile unremarkable. X-ray right foot showing degenerative changes of the right first digit metacarpal phalangeal joint with osteophyte formation and joint space narrowing, posterior subluxation of the right great toe and soft tissue swelling with subcutaneous gas. Venous Doppler also completed of right lower extremity which was negative for DVT. Patient was started on IV ant ibiotics of vancomycin and Zosyn and admitted under our services with consultation to vascular surgery. Physical examination: Patient seen and fully evaluated at bedside this morning. Patient slightly anxious regarding plan of care at this time. Patient expresses concern regarding CT results and was updated that results are currently pending and unavailable at this time. Patient to be updated once results are available. Patient updated on current plan with continuation of IV antibiotics while awaiting culture results. Patient denied having any further needs or complaints at this time. General: non toxic, no distress, appears at stated age Derm: warm, dry Head: atraumatic, normocephalic, symmetric Eyes: EOMI, no lid lag, anicteric sclera Mouth: no lip lesion, mucus membranes moist Cardiovascular: S1S2 reg, no murmur, positive posterior tibial pulse bilateral, Lungs: CTA bilateral, no rhonchi, no rales , no accessory muscle use Abdominal: soft, nontender to palpation, no guarding, no appreciable organomegaly Ext: no gross muscle atrophy, 1+ pitting bilateral lower extremity edema, no contractures. Dressing in place right foot, clean, dry, and intact. Neuro: CN II-XI grossly intact, no focal neuro deficits Psych: Alert, oriented, appropriate affect Assessment: Infected Diabetic ulcer of right foot Thrombocytopenia, somewhat worse than baseline Hyponatremia Insulin-dependent diabetes mellitus -Vascular surgery following and reviewed documentation in chart. -Infectious disease following, discontinued Zosyn and added Unasyn along with recommended continuation of vancomycin. -Blood cultures showing no growth to date. -Continue IV antibiotics with Unasyn 3 g every 6 hours and vancomycin 2250 mg every 12 hours. -Monitor vancomycin trough and renal function closely to monitor for any signs of vancomycin associated renal toxicity. Renal function stable with BUN of 21.2, creatinine 1.3, and GFR of 66. -ESR 52 and CRP 21.60. -Follow-up on wound cultures -Symptomatic care and pain management. -CT right foot was completed this morning and currently awaiting to be read by radiologist. Will follow up with these results. Data Review: -Labs completed and reviewed. CBC revealing continued thrombocytopenia with platelet count of 114 and leukopenia with WBC count of 4.45. ESR was elevated at 52. Hemoglobin A1c resulting at 6.9%. Blood glucose levels stable at 149. CRP elevated at 21.60. Renal function stable with BUN of 21.2, creatinine 1.3, and GFR of 66. -Vital signs reviewed and stable. Blood pressure 125/78, heart rate 80, respiratory rate 16, SpO2 96% on room air and temperature of 98.9F. Review of imaging: -X-ray right foot showing degenerative changes of the right first digit metacarpal phalangeal joint with osteophyte formation and joint space narrowing, posterior subluxation of the right great toe and soft tissue swelling with subc utaneous gas. -Venous Doppler also completed of right lower extremity which was negative for DVT. -CT read foot completed at 7:21 AM this morning and currently pending read by radiologist. DVT prophylaxis: Lovenox Anticipated discharge: Clinical course to determine Anticipated discharge place: Home Patient was seen independently by Nurse Pracitioner. This document was prepared using [employer] dictation software. Please allow for errors in elastic tape inserter, while rare they do occur. I reviewed the documentation as provided by the SHANNAN above, who is the original author of this note. I agree with the documented assessment and plan, with the following changes: none Objective - Vital Signs Vital signs: Vital Signs Temp 98.9 F 03/09/23 07:39 Pulse 80 03/09/23 07:39 Resp 16 03/09/23 07:39 BP 125/78 03/09/23 07:39 Pulse Ox 96 03/09/23 07:39 FiO2 Intake & Output 03/08/23 03/09/23 03/09/23 18:59 06:59 18:59 Intake Total 118 Balance 118 Intake: Oral 118 Other: # Voids 1 1 - Labs CBC & Chem 7: 03/09/23 05:32 03/10/23 06:29 Labs: Abnormal Lab Results - Last 24 Hours (Table) 03/08/23 03/08/23 03/09/23 Range/Units 16:46 20:37 06:37 POC Glucose (mg/dL) 161 H 185 H 143 H (70-110) mg/dL
[2023-03-09 16:58] LABS: Glucose,Whole Blood 173 mg/dL (70-110)
[2023-03-09 20:40] LABS: Glucose,Whole Blood 248 mg/dL (70-110)
[2023-03-09] MEDS: INSULIN DETEMIR (LEVEMIR) 100 UNIT/ML SYR SQ SCH (22:55)
[2023-03-10] MEDS: AMPICILLIN-SULBACTAM 3 GM in SODIUM CHLORIDE 0.9% 100 ML IVPB SCH ×4 (00:32→18:02)
[2023-03-10] MEDS: SODIUM CHLORIDE 0.9% 1,000 ML IV SCH ×4 (01:39→21:08)
[2023-03-10 05:50] LABS: Glucose,Whole Blood 140 mg/dL (70-110)
[2023-03-10] MEDS: INSULIN ASPART (NovoLOG) 100 UNIT/ML VIAL SQ SCH ×4 (06:33→21:13)
[2023-03-10] MEDS ORDERED: VANCOMYCIN TROUGH DUE 1 EACH MISC MISCELLANE ONE (07:00)
[2023-03-10 07:52] VITALS: RESP 16
[2023-03-10 08:42] LABS: African American GFR (CKD) >90 (>60 ml/min/1.73 sqM); Non-African American GFR(CKD) >90 (>60 ml/min/1.73 sqM)
[2023-03-10] MEDS: LEVOTHYROXINE 100 MCG TAB PO SCH (09:54)
[2023-03-10] MEDS: DAPAGLIFLOZIN PROPANEDIOL 10 MG TABLET PO SCH (09:55)
[2023-03-10] MEDS: lisinopriL 20 MG TAB PO SCH (09:55)
[2023-03-10] MEDS: ENOXAPARIN 40 MG/0.4 ML SYRINGE SQ SCH (09:55)
[2023-03-10] MEDS ORDERED: VANCOMYCIN 2,000 MG in SODIUM CHLORIDE 0.9% 500 ML 500 ML IVPB SCH (10:00)
[2023-03-10 12:03] LABS: Glucose,Whole Blood 210 mg/dL (70-110)
[2023-03-10] MEDS: VANCOMYCIN 2,250 MG in SODIUM CHLORIDE 0.9% 500 ML 500 ML IVPB SCH (12:23)
--- NOTE | 2023-03-10 12:47 | P.PN ---
Subjective Progress Note Date: 03/09/23 Principal diagnosis: Right diabetic foot infection/osteomyelitis Patient is a 52-year-old male with a past medical history significant for diabetes mellitus hypertension hypothyroidism presenting to the hospital for evaluation of increasing swelling and redness to the right foot especially to the right big toe apparently the patient did have ulceration on the right big toe that has been going on for about 2 months On today's evaluation that is 03/09/2023, patient denies having any fever or chills, patient denies having any chest pain shortness of breath or cough no nausea no vomiting no abdominal pain no diarrhea Objective - Vital Signs Vital signs: Vital Signs Temp 98.9 F 03/09/23 07:39 Pulse 80 03/09/23 07:39 Resp 16 03/09/23 07:39 BP 125/78 03/09/23 07:39 Pulse Ox 96 03/09/23 07:39 FiO2 Intake & Output 03/08/23 03/09/23 03/09/23 18:59 06:59 18:59 Intake Total 118 200 Balance 118 200 Intake: Oral 118 200 Other: # Voids 1 1 - Exam GENERAL DESCRIPTION: A middle-aged male lying in bed in no distress RESPIRATORY SYSTEM: Unlabored breathing , decreased breath sounds at bases HEART: S1 S2 regular rate and rhythm , ABDOMEN: Soft , no tenderness EXTREMITIES: Right foot is currently dressed no drainage on the dressing - Labs CBC & Chem 7: 03/09/23 05:32 03/10/23 06:29 Labs: Abnormal Lab Results - Last 24 Hours (Table) 03/08/23 03/08/23 03/09/23 Range/Units 16:46 20:37 05:32 WBC (4.50-10.00) X 10*3/uL RBC (4.40-5.60) X 10*6/uL Hct (39.6-50.0) % Plt Count (140-440) X 10*3/uL MPV (9.5-12.2) FL ESR (0-20) mm/Hr Glucose (70-110) mg/dL POC Glucose (mg/dL) 161 H 185 H (70-110) mg/dL Hemoglobin A1c 6.9 H (<=6.0) % AST (14-35) U/L C-Reactive Protein (0.00-0.80) mg/dL Total Protein (6.2-8.2) d/dL Albumin (3.8-4.9) d/dL 03/09/23 03/09/23 03/09/23 Range/Units 05:32 05:32 06:37 WBC 4.45 L (4.50-10.00) X 10*3/uL RBC 4.06 L (4.40-5.60) X 10*6/uL Hct 37.5 L (39.6-50.0) % Plt Count 114 L (140-440) X 10*3/uL MPV 9.4 L (9.5-12.2) FL ESR 52 H (0-20) mm/Hr Glucose 149 H (70-110) mg/dL POC Glucose (mg/dL) 143 H (70-110) mg/dL Hemoglobin A1c (<=6.0) % AST 12 L (14-35) U/L C-Reactive Protein 21.60 H (0.00-0.80) mg/dL Total Protein 5.7 L (6.2-8.2) d/dL Albumin 3.6 L (3.8-4.9) d/dL 03/09/23 Range/Units 11:39 WBC (4.50-10.00) X 10*3/uL RBC (4.40-5.60) X 10*6/uL Hct (39.6-50.0) % Plt Count (140-440) X 10*3/uL MPV (9.5-12.2) FL ESR (0-20) mm/Hr Glucose (70-110) mg/dL POC Glucose (mg/dL) 178 H (70-110) mg/dL Hemoglobin A1c (<=6.0) % AST (14-35) U/L C-Reactive Protein (0.00-0.80) mg/dL Total Protein (6.2-8.2) d/dL Albumin (3.8-4.9) d/dL Microbiology - Last 24 Hours (Table) 03/07/23 19:30 Blood Culture - Preliminary Blood 03/07/23 19:15 Blood Culture - Preliminary Blood Assessment and Plan (1) Cellulitis Current Visit: Yes Status: Acute Code(s): L03.90 - CELLULITIS, UNSPECIFIED SNOMED Code(s): 502678509 (2) Diabetic foot infection Current Visit: Yes Status: Acute Code(s): E11.628 - TYPE 2 DIABETES MELLITUS WITH OTHER SKIN COMPLICATIONS; L08.9 - LOCAL INFECTION OF THE SKIN AND SUBCUTANEOUS TISSUE, UNSP SNOMED Code(s): 556057361 (3) Osteomyelitis Current Visit: Yes Status: Acute Code(s): M86.9 - OSTEOMYELITIS, UNSPECIFIED SNOMED Code(s): 93951204 Plan: 1patient with extensive right diabetic foot infection with with significant swelling and redness of the right great toe with erythema extending to the dorsal aspect of the right foot with rapid progression is highly suspicious for gram-positive/chest streptococcal infection 2-patient did have CT of the right foot with official report currently pending 3-continue patient on vancomycin and Unasyn to cover for the gram-negative anaerobes Time with Patient: Less than 30
--- NOTE | 2023-03-10 13:11 | P.CONS ---
History of Present Illness - Reason for Consult Consult date: 03/10/23 wound care - History of Present Illness This is a 52-year-old gentleman being seen on [facility] [address]. for a diabetic foot ulcer of the right great toe and right plantar forefoot. Patient does have osteomyelitis to the site. He is currently on IV antibiotics. Patient has been under the care of podiatry prior to this episode. Patient has remodeling of the right great toe. Ulcerations have a layer of slough in place however upon palpitation it feels like there is depth to the ulceration. Patient's previous hemoglobin A1c was 10 at this time he is at 6.1. Review Of Systems: Constitutional: No fever, no chills, no night sweats. No weight change. No weakness, fatigue or lethargy. No daytime sleepiness. Integumentary:reports wounds, no lesions. No rash or pruritus. No unusual bruising. No change in hair or nails. Physical exam: General Appearance: Alert, cooperative, no distress, appears stated age. Skin: See HPI all other Skin color, texture, tugor normal, no rashes or lesions. Neurologic: Alert oriented x3 Assessment: 1. Nonhealing ulceration of the right great toe 2. Nonhealing ulceration of the right plantar forefoot 3. Diabetic foot ulcer 4. Osteomyelitis Plan: 1. Apply Santyl to the ulcerations, saline moistened gauze, dry gauze, rolled gauze and secure with tape. nonweightbearing to the right forefoot. Utilize a walker. Patient would benefit from continued advance wound care and wound care center. We will be happy to see him. Patient is agreeable to this. Thank you for the consultation any questions please contact the wound care center DNP note has been reviewed and discussed with Dr. Nogueira and the impression and plan of care has been directed as dictated. Past Medical History Past Medical History: Diabetes Mellitus, Sleep Apnea/CPAP/BIPAP, Thyroid Disorder Additional Past Medical History / Comment(s): hx gout, states hyperstenosis of liver History of Any Multi-Drug Resistant Organisms: None Reported Past Surgical History: Cholecystectomy Past Anesthesia/Blood Transfusion Reactions: No Reported Reaction Past Psychological History: No Psychological Hx Reported Smoking Status: Never smoker Past Alcohol Use History: Rare Past Drug Use History: None Reported - Past Family History Mother Family Medical History: Cancer Additional Family Medical History / Comment(s): colon Medications and Allergies Home Medications Medication Instructions Recorded Confirmed Type metFORMIN HCL [Glucophage] 850 mg PO TID-W/MEALS 10/22/16 03/07/23 History Acetaminophen [Tylenol Extra 1,000 mg PO Q6H PRN 03/07/23 03/07/23 History Strength] Empagliflozin [Jardiance] 10 mg PO DAILY 03/07/23 03/07/23 History Insulin Glargine,Hum.rec.anlog 12 unit SQ HS 03/07/23 03/07/23 History [Basaglar Kwikpen U-100] Insulin Regular, Human [Novolin R] See Protocol SQ TID-W/MEALS 03/07/23 03/07/23 History Levothyroxine Sodium [Synthroid] 200 mcg PO DAILY 03/07/23 03/07/23 History Magnesium Oxide [Mag-Ox] 400 mg PO DAILY 03/07/23 03/07/23 History Naproxen Sodium [Aleve] 440 mg PO BID PRN 03/07/23 03/07/23 History Pioglitazone [Actos] 45 mg PO DAILY 03/07/23 03/07/23 History lisinopriL [Prinivil] 20 mg PO DAILY 03/07/23 03/07/23 History Allergies Allergy/AdvReac Type Severity Reaction Status Date / Time No Known Allergies Allergy Verified 03/07/23 20:45 Physical Exam Vitals: Vital Signs Temp Pulse Resp BP Pulse Ox 03/10/23 07:52 97.9 F 78 16 151/91 97 03/10/23 01:39 97.9 F 68 121/72 97 03/09/23 20:00 98.5 F 78 17 148/87 95 03/09/23 14:56 97.8 F 87 16 127/79 96 Intake and Output 03/09/23 03/10/23 03/10/23 22:59 06:59 14:59 Intake Total 200 Balance 200 Intake: Oral 200 Other: # Voids 3 2 Results CBC & Chem 7: 03/09/23 05:32 03/10/23 06:29 Labs: Abnormal Lab Results - Last 24 Hours (Table) 03/09/23 03/09/23 03/10/23 Range/Units 16:57 20:39 05:49 POC Glucose (mg/dL) 173 H 248 H 140 H (70-110) mg/dL 03/10/23 Range/Units 11:44 POC Glucose (mg/dL) 210 H (70-110) mg/dL Microbiology - Last 24 Hours (Table) 03/07/23 19:30 Blood Culture - Preliminary Blood 03/07/23 19:15 Blood Culture - Preliminary Blood 03/08/23 13:03 Gram Stain - Preliminary Foot - Right Wound Culture - Preliminary Strep agalactiae - (group b) Assessment and Plan (1) Non-pressure chronic ulcer of other part of right foot with necrosis of bone Current Visit: Yes Status: Acute Code(s): L97.514 - NON-PRS CHRONIC ULCER OTH PRT RIGHT FOOT W NECROSIS OF BONE SNOMED Code(s): 35545641972895417 (2) Pressure ulcer of toe of right foot, stage 3 Current Visit: Yes Status: Acute Code(s): L89.893 - PRESSURE ULCER OF OTHER SITE, STAGE 3 SNOMED Code(s): 80790805547713609 (3) Osteomyelitis Current Visit: Yes Status: Acute Code(s): M86.9 - OSTEOMYELITIS, UNSPECIFIED SNOMED Code(s): 26219762 (4) Type 2 diabetes mellitus with foot ulcer Current Visit: Yes Status: Acute Code(s): E11.621 - TYPE 2 DIABETES MELLITUS WITH FOOT ULCER; L97.509 - NON-PRESSURE CHRONIC ULCER OTH PRT UNSP FOOT W UNSP SEVERITY SNOMED Code(s): 788356423
--- NOTE | 2023-03-10 14:09 | P.PN ---
Subjective Progress Note Date: 03/10/23 Principal diagnosis: Right great toe/foot wound infection Patient was seen and examined today as a follow-up. He denies any fevers or chills. Currently on Unasyn. He had a CT of the foot without contrast reporting suspected osteomyelitis involving the first and second digit m etatarsal heads also suspected involvement of the first and second digit metatarsophalangeal joints. Subtle erosive changes to the first digit phalanx base also suggestive of osteomyelitis. Soft tissue swelling around these joints pronounced at the first digit. Posterior subluxation/dislocation of the first digit at the metatarsophalangeal joint. Limited evaluation for abscess given noncontrast technique consider evaluation with MRI given diffuse soft tissue edema and swelling. Objective - Vital Signs Vital signs: Vital Signs Temp 97.9 F 03/10/23 07:52 Pulse 78 03/10/23 07:52 Resp 16 03/10/23 07:52 BP 151/91 03/10/23 07:52 Pulse Ox 97 03/10/23 07:52 FiO2 Intake & Output 03/09/23 03/10/23 03/10/23 18:59 06:59 18:59 Intake Total 600 Balance 600 Intake: Oral 600 Other: # Voids 3 2 - Exam General appearance: The patient is alert, oriented, appears in no acute distress. HET: Head is normocephalic and atraumatic. Neck: Supple. Heart: Regular. Lungs: Equal expansion, normal respiratory effort. Abdomen: Soft, nontender, nondistended. Extremities: Right great toe swelling, erythema, wound to the dorsal aspect without any drainage as well as wound to the plantar aspect of foot without any drainage. Neurological: No focal deficits. Strength and sensation are grossly intact. - Labs CBC & Chem 7: 03/09/23 05:32 03/10/23 06:29 Labs: Abnormal Lab Results - Last 24 Hours (Table) 03/09/23 03/09/23 03/09/23 Range/Units 05:32 05:32 05:32 WBC 4.45 L (4.50-10.00) X 10*3/uL RBC 4.06 L (4.40-5.60) X 10*6/uL Hct 37.5 L (39.6-50.0) % Plt Count 114 L (140-440) X 10*3/uL MPV 9.4 L (9.5-12.2) FL ESR 52 H (0-20) mm/Hr Glucose 149 H (70-110) mg/dL POC Glucose (mg/dL) (70-110) mg/dL Hemoglobin A1c 6.9 H (<=6.0) % AST 12 L (14-35) U/L C-Reactive Protein 21.60 H (0.00-0.80) mg/dL Total Protein 5.7 L (6.2-8.2) d/dL Albumin 3.6 L (3.8-4.9) d/dL 03/09/23 03/09/23 03/09/23 Range/Units 11:39 16:57 20:39 WBC (4.50-10.00) X 10*3/uL RBC (4.40-5.60) X 10*6/uL Hct (39.6-50.0) % Plt Count (140-440) X 10*3/uL MPV (9.5-12.2) FL ESR (0-20) mm/Hr Glucose (70-110) mg/dL POC Glucose (mg/dL) 178 H 173 H 248 H (70-110) mg/dL Hemoglobin A1c (<=6.0) % AST (14-35) U/L C-Reactive Protein (0.00-0.80) mg/dL Total Protein (6.2-8.2) d/dL Albumin (3.8-4.9) d/dL 03/10/23 Range/Units 05:49 WBC (4.50-10.00) X 10*3/uL RBC (4.40-5.60) X 10*6/uL Hct (39.6-50.0) % Plt Count (140-440) X 10*3/uL MPV (9.5-12.2) FL ESR (0-20) mm/Hr Glucose (70-110) mg/dL POC Glucose (mg/dL) 140 H (70-110) mg/dL Hemoglobin A1c (<=6.0) % AST (14-35) U/L C-Reactive Protein (0.00-0.80) mg/dL Total Protein (6.2-8.2) d/dL Albumin (3.8-4.9) d/dL Microbiology - Last 24 Hours (Table) 03/08/23 13:03 Gram Stain - Preliminary Foot - Right Wound Culture - Preliminary Strep agalactiae - (group b) 03/07/23 19:30 Blood Culture - Preliminary Blood 03/07/23 19:15 Blood Culture - Preliminary Blood Assessment and Plan Assessment: 1. Diabetic foot infection right great toe 2. History of osteomyelitis, likely chronic recurrent at this point 3. Diabetes mellitus Plan: 1. Consult to the [facility] for local wound care and outpatient follow-up 2. Consider possible MRI of the foot if warranted from infectious disease 3. Continue antibiotic recommendations per infectious disease Thank you for this consultation, we will continue to follow. The impression and plan of care has been dictated as directed. Dr. Ha I performed a history and examination of this patient, discussed the same with the dictator. I agree with the dictator's note ,documented as a scribe. Any additional findings or plans will be noted.
--- NOTE | 2023-03-10 14:36 | P.PN ---
Subjective Progress Note Date: 03/10/23 Hospital course: Patient is a very pleasant 52-year-old male with a past medical history of type 2 insulin-dependent diabetes mellitus, hypertension, hypothyroidism, and obstructive sleep apnea. Her department on 03/07/23 with a chief complaint of right foot pain, swelling, and infection reported to progressively worsen over the past 2 months despite outpatient treatment with infrastructure software engineer. Patient underwent full evaluation in the emergency department. Labs completed and reviewed. CBC showing thrombocytopenia with bili count of 120. Coagulation profile normal findings. BMP revealing mild hyponatremia with sodium of 131 and slight elevation of renal function with BUN 23, creatinine 1.30, and GFR of 63 with baseline creatinine of 1.1. Lactic acid normal findings at 1.1. Glucose 111. Liver profile unremarkable. X-ray right foot showing degenerative changes of the right first digit metacarpal phalangeal joint with osteophyte formation and joint space narrowing, posterior subluxation of the right great toe and soft tissue swelling with subcutaneous gas. Venous Doppler also completed of right lower extremity which was negative for DVT. Patient was started on IV ant ibiotics of vancomycin and Zosyn and admitted under our services with consultation to vascular surgery and infectious disease. CT right foot completed the radiology report reviewed reporting suspected osteomyelitis involving the first and second digit metatarsal near the heads also suspected involvement of the first and second digit metatarsophalangeal joints with several erosive changes to the first digit phalanx base also suggestive of osteomyelitis accompanied by surrounding soft tissue swelling, posterior subluxation/dislocation of the first digit and metatarsal phalangeal joint. Physical examination: Patient seen and fully evaluated at bedside this morning. Discussed plan of care with vascular surgery, recommending continued IV antibiotics and consideration of possible MRI. General: non toxic, no distress, appears at stated age Derm: warm, dry Head: atraumatic, normocephalic, symmetric Eyes: EOMI, no lid lag, anicteric sclera Mouth: no lip lesion, mucus membranes moist Cardiovascular: S1S2 reg, no murmur, positive posterior tibial pulse bilateral, Lungs: CTA bilateral, no rhonchi, no rales , no accessory muscle use Abdominal: soft, nontender to palpation, no guarding, no appreciable organomegaly Ext: no gross muscle atrophy, 1+ pitting bilateral lower extremity edema, no contractures. Dressing in place right foot, clean, dry, and intact. Neuro: CN II-XI grossly intact, no focal neuro deficits Psych: Alert, oriented, appropriate affect Assessment: Osteomyelitis secondary to Infected Diabetic ulcer of right foot Thrombocytopenia, somewhat worse than baseline Hyponatremia Insulin-dependent diabetes mellitus -Vascular surgery following and discussed plan of care with vascular surgery FARMWORKER BULBS and vascular surgeon, recommending continued IV antibiotics and consideration of possible MRI. -Infectious disease following, discontinue vancomycin and recommending alexa nuation of Unasyn. -Blood cultures showing no growth to date. -Wound cultures positive for Strep agalactiae-group B. -Continue IV antibiotics with Unasyn 3 g every 6 hours -ESR 52 and CRP 21.60. -Symptomatic care and pain management. -Continue glycemic control with NovoLog sliding scale to maintain tight glycemic control throughout hospitalization. Data Review: -Labs completed and reviewed. Creatinine 0.9 to and GFR greater than 90. Vancomycin trough was 21.2, vancomycin discontinued by infectious disease secondary to wound culture results positive for strep b. -Vital signs reviewed and stable. Blood pressure 151/91, heart rate 78, respiratory rate 16, SpO2 97% on room air with temp 97.9F. Review of imaging: -CT right foot completed the radiology report reviewed reporting suspected osteomyelitis involving the first and second digit metatarsal near the heads also suspected involvement of the first and second digit metatarsophalangeal joints with several erosive changes to the first digit phalanx base also suggestive of osteomyelitis accompanied by surrounding soft tissue swelling, posterior subluxation/dislocation of the first digit and metatarsal phalangeal joint. DVT prophylaxis: Lovenox Anticipated discharge: Clinical course to determine Anticipated discharge place: Home Patient was seen independently by Nurse Pracitioner. This document was prepared using [employer] dictation software. Please allow for errors in career development coordinator/teacher, while rare they do occur. I reviewed the documentation as provided by the SHANNAN above, who is the original author of this note. I agree with the documented assessment and plan, with the following changes: none Objective - Vital Signs Vital signs: Vital Signs Temp 97.9 F 03/10/23 07:52 Pulse 78 03/10/23 07:52 Resp 16 03/10/23 07:52 BP 151/91 03/10/23 07:52 Pulse Ox 97 03/10/23 07:52 FiO2 Intake & Output 03/09/23 03/10/23 03/10/23 18:59 06:59 18:59 Intake Total 600 Balance 600 Intake: Oral 600 Other: # Voids 3 2 - Labs CBC & Chem 7: 03/09/23 05:32 03/10/23 06:29 Labs: Abnormal Lab Results - Last 24 Hours (Table) 03/09/23 03/09/23 03/09/23 Range/Units 05:32 05:32 05:32 WBC 4.45 L (4.50-10.00) X 10*3/uL RBC 4.06 L (4.40-5.60) X 10*6/uL Hct 37.5 L (39.6-50.0) % Plt Count 114 L (140-440) X 10*3/uL MPV 9.4 L (9.5-12.2) FL ESR 52 H (0-20) mm/Hr Glucose 149 H (70-110) mg/dL POC Glucose (mg/dL) (70-110) mg/dL Hemoglobin A1c 6.9 H (<=6.0) % AST 12 L (14-35) U/L C-Reactive Protein 21.60 H (0.00-0.80) mg/dL Total Protein 5.7 L (6.2-8.2) d/dL Albumin 3.6 L (3.8-4.9) d/dL 03/09/23 03/09/23 03/09/23 Range/Units 11:39 16:57 20:39 WBC (4.50-10.00) X 10*3/uL RBC (4.40-5.60) X 10*6/uL Hct (39.6-50.0) % Plt Count (140-440) X 10*3/uL MPV (9.5-12.2) FL ESR (0-20) mm/Hr Glucose (70-110) mg/dL POC Glucose (mg/dL) 178 H 173 H 248 H (70-110) mg/dL Hemoglobin A1c (<=6.0) % AST (14-35) U/L C-Reactive Protein (0.00-0.80) mg/dL Total Protein (6.2-8.2) d/dL Albumin (3.8-4.9) d/dL 03/10/23 Range/Units 05:49 WBC (4.50-10.00) X 10*3/uL RBC (4.40-5.60) X 10*6/uL Hct (39.6-50.0) % Plt Count (140-440) X 10*3/uL MPV (9.5-12.2) FL ESR (0-20) mm/Hr Glucose (70-110) mg/dL POC Glucose (mg/dL) 140 H (70-110) mg/dL Hemoglobin A1c (<=6.0) % AST (14-35) U/L C-Reactive Protein (0.00-0.80) mg/dL Total Protein (6.2-8.2) d/dL Albumin (3.8-4.9) d/dL Microbiology - Last 24 Hours (Table) 03/08/23 13:03 Gram Stain - Preliminary Foot - Right Wound Culture - Preliminary Strep agalactiae - (group b) 03/07/23 19:30 Blood Culture - Preliminary Blood 03/07/23 19:15 Blood Culture - Preliminary Blood
[2023-03-10] MEDS: COLLAGENASE 250 UNIT/GM OINTMENT 30 GM TUBE TOPICAL SCH (16:56)
[2023-03-10 17:05] LABS: Glucose,Whole Blood 136 mg/dL (70-110)
[2023-03-10 20:22] LABS: Glucose,Whole Blood 242 mg/dL (70-110)
[2023-03-10] MEDS: INSULIN DETEMIR (LEVEMIR) 100 UNIT/ML SYR SQ SCH (21:13)
--- NOTE | 2023-03-10 21:39 | P.PN ---
Subjective Progress Note Date: 03/10/23 Principal diagnosis: Right diabetic foot infection/osteomyelitis Patient is a 52-year-old male with a past medical history significant for diabetes mellitus hypertension hypothyroidism presenting to the hospital for evaluation of increasing swelling and redness to the right foot especially to the right big toe apparently the patient did have ulceration on the right big toe that has been going on for about 2 months On today's evaluation that is 03/10/2023, patient remains to be afebrile, patient denies having any chest pain shortness of breath or cough no nausea no vomiting no abdominal pain no diarrhea Objective - Vital Signs Vital signs: Vital Signs Temp 97.9 F 03/10/23 07:52 Pulse 78 03/10/23 07:52 Resp 16 03/10/23 07:52 BP 151/91 03/10/23 07:52 Pulse Ox 97 03/10/23 07:52 FiO2 Intake & Output 03/09/23 03/10/23 03/10/23 18:59 06:59 18:59 Intake Total 600 Balance 600 Intake: Oral 600 Other: # Voids 3 2 - Exam GENERAL DESCRIPTION: A middle-aged male lying in bed in no distress RESPIRATORY SYSTEM: Unlabored breathing , decreased breath sounds at bases HEART: S1 S2 regular rate and rhythm , ABDOMEN: Soft , no tenderness EXTREMITIES: Right foot swelling and redness has slightly decreased - Labs CBC & Chem 7: 03/09/23 05:32 03/10/23 06:29 Labs: Abnormal Lab Results - Last 24 Hours (Table) 03/09/23 03/09/23 03/09/23 Range/Units 05:32 11:39 16:57 POC Glucose (mg/dL) 178 H 173 H (70-110) mg/dL Hemoglobin A1c 6.9 H (<=6.0) % 03/09/23 03/10/23 Range/Units 20:39 05:49 POC Glucose (mg/dL) 248 H 140 H (70-110) mg/dL Hemoglobin A1c (<=6.0) % Microbiology - Last 24 Hours (Table) 03/08/23 13:03 Gram Stain - Preliminary Foot - Right Wound Culture - Preliminary Strep agalactiae - (group b) 03/07/23 19:30 Blood Culture - Preliminary Blood 03/07/23 19:15 Blood Culture - Preliminary Blood Assessment and Plan (1) Osteomyelitis Current Visit: Yes Status: Acute Code(s): M86.9 - OSTEOMYELITIS, UNSPECIFIED SNOMED Code(s): 99068929 (2) Type 2 diabetes mellitus with foot ulcer Current Visit: Yes Status: Acute Code(s): E11.621 - TYPE 2 DIABETES MELLITUS WITH FOOT ULCER; L97.509 - NON-PRESSURE CHRONIC ULCER OTH PRT UNSP FOOT W UNSP SEVERITY SNOMED Code(s): 825616063 Plan: 1patient with extensive right diabetic foot infection with with significant swelling and redness of the right great toe with erythema extending to the dors al aspect of the right foot with rapid progression is highly suspicious for gram-positive/chest streptococcal infection 2-patient did have CT of the right foot positive for ostomy myelitis involving t he first and second metatarsal no mention of any abscess 3-patient local culture finalized with group B strep 4-patient to continue with Unasyn , however discontinue vancomycin
[2023-03-11] MEDS: SODIUM CHLORIDE 0.9% 1,000 ML IV SCH ×2 (02:31→11:10)
[2023-03-11] MEDS: AMPICILLIN-SULBACTAM 3 GM in SODIUM CHLORIDE 0.9% 100 ML IVPB SCH ×4 (05:27→11:11)
[2023-03-11 05:34] LABS: Glucose,Whole Blood 154 mg/dL (70-110)
[2023-03-11] MEDS: INSULIN ASPART (NovoLOG) 100 UNIT/ML VIAL SQ SCH ×3 (06:36→17:13)
[2023-03-11 07:22] LABS: ALT 16 U/L (4-49); AST 20 U/L (17-59); African American GFR (CKD) >90 (>60 ml/min/1.73 sqM); Albumin 3.3 g/dL (3.5-5.0); Albumin/Globulin Ratio 1.3; Alkaline Phosphatase 48 U/L (38-126); Anion Gap 9 mmol/L; Blood Urea Nitrogen 19 mg/dL (9-20); Calcium 8.6 mg/dL (8.4-10.2); Carbon Dioxide 21 mmol/L (22-30); Chloride 107 mmol/L (98-107); Globulin 2.5 g/dL; Glucose 151 mg/dL (74-99); Magnesium 1.8 mg/dL (1.6-2.3); Non-African American GFR(CKD) >90 (>60 ml/min/1.73 sqM); Potassium 4.5 mmol/L (3.5-5.1); Sodium 137 mmol/L (137-145); Total Bilirubin 0.3 mg/dL (0.2-1.3); Total Protein 5.8 g/dL (6.3-8.2)
[2023-03-11] MEDS: LEVOTHYROXINE 100 MCG TAB PO SCH (08:51)
[2023-03-11] MEDS: ENOXAPARIN 40 MG/0.4 ML SYRINGE SQ SCH (08:51)
[2023-03-11] MEDS: DAPAGLIFLOZIN PROPANEDIOL 10 MG TABLET PO SCH (08:51)
[2023-03-11] MEDS: lisinopriL 20 MG TAB PO SCH (08:51)
[2023-03-11 11:02] LABS: HCT 38.8 % (39.6-50.0); HGB 13.1 d/dL (12.0-15.0); MCH 30.5 pg (27.0-32.0); MCHC 33.8 d/dL (32.0-37.0); MCV 90.4 FL (80.0-97.0); Mean Platelet Volume 9.3 FL (9.5-12.2); NRBC Per 100 WBC 0 X 10*3/uL (0.00-0.01); Platelet Count 148 X 10*3/uL (140-440); RBC 4.29 X 10*6/uL (4.40-5.60); RDW 12.7 % (11.5-14.5); WBC 2.95 X 10*3/uL (4.50-10.00)
[2023-03-11] MEDS: COLLAGENASE 250 UNIT/GM OINTMENT 30 GM TUBE TOPICAL SCH (11:10)
[2023-03-11 11:18] LABS: Glucose,Whole Blood 175 mg/dL (70-110)
[2023-03-11 11:23] LABS: Prothrombin Time 10.5 sec (9.0-12.0)
--- NOTE | 2023-03-11 12:25 | P.PN ---
Subjective Progress Note Date: 03/11/23 Principal diagnosis: Right great toe/foot wound infection Patient seen and examined today as a follow-up. Patient is afebrile. He was seen by wound care they recommend Santyl with wet to dry dressing. Follow-up for outpatient wound care. He remains on IV Unasyn. Objective - Vital Signs Vital signs: Vital Signs Temp 98.9 F 03/11/23 06:55 Pulse 60 03/11/23 06:55 Resp 16 03/11/23 06:55 BP 126/77 03/11/23 06:55 Pulse Ox 98 03/11/23 06:55 FiO2 Intake & Output 03/10/23 03/11/23 03/11/23 18:59 06:59 18:59 Other: Voiding Method Toilet # Voids 3 2 - Exam General appearance: The patient is alert, oriented, appears in no acute distress. HET: Head is normocephalic and atraumatic. Neck: Supple. Heart: Regular. Lungs: Equal expansion, normal respiratory effort. Abdomen: Soft, nontender, nondistended. Extremities: Right foot with dressing clean dry and intact. Neurological: No focal deficits. Strength and sensation are grossly intact. - Labs CBC & Chem 7: 03/11/23 05:49 03/11/23 05:49 Labs: Abnormal Lab Results - Last 24 Hours (Table) 03/10/23 03/10/23 03/10/23 Range/Units 11:44 17:03 20:18 Carbon Dioxide (22-30) mmol/L Glucose (74-99) mg/dL POC Glucose (mg/dL) 210 H 136 H 242 H (70-110) mg/dL Total Protein (6.3-8.2) g/dL Albumin (3.5-5.0) g/dL 03/11/23 03/11/23 Range/Units 05:23 05:49 Carbon Dioxide 21 L (22-30) mmol/L Glucose 151 H (74-99) mg/dL POC Glucose (mg/dL) 154 H (70-110) mg/dL Total Protein 5.8 L (6.3-8.2) g/dL Albumin 3.3 L (3.5-5.0) g/dL Microbiology - Last 24 Hours (Table) 03/08/23 13:03 Anaerobic Culture - Preliminary Foot - Right 03/08/23 13:03 Gram Stain - Final Foot - Right Wound Culture - Final Strep agalactiae - (group b) 03/07/23 19:30 Blood Culture - Preliminary Blood 03/07/23 19:15 Blood Culture - Preliminary Blood Assessment and Plan Assessment: 1. Diabetic foot infection right great toe 2. History of osteomyelitis, likely chronic recurrent at this point 3. Diabetes mellitus Plan: 1. Consult to the [facility] for local wound care and outpatient follow-up 2. Consider possible MRI of the foot if warranted from infectious disease 3. Continue antibiotic recommendations per infectious disease 4. Plan for PICC line placement 5. No plans on surgical intervention at this time, patient may follow-up with vascular surgery as needed Thank you for this consultation, we will sign off at this time. The impression and plan of care has been dictated as directed. Dr. Ha I performed a history and examination of this patient, discussed the same with the dictator. I agree with the dictator's note ,documented as a scribe. Any additional findings or plans will be noted.
--- NOTE | 2023-03-11 12:32 | P.PN ---
Subjective Progress Note Date: 03/11/23 Principal diagnosis: Right diabetic foot infection/osteomyelitis Patient is a 52-year-old male with a past medical history significant for diabetes mellitus hypertension hypothyroidism presenting to the hospital for evaluation of increasing swelling and redness to the right foot especially to the right big toe apparently the patient did have ulceration on the right big toe that has been going on for about 2 months On today's evaluation that is 03/11/2023, patient continues to be afebrile, patient denies having any chest pain shortness of breath or cough no nausea no vomiting no abdominal pain no diarrhea, denies pain to the right foot Objective - Vital Signs Vital signs: Vital Signs Temp 98.9 F 03/11/23 06:55 Pulse 60 03/11/23 06:55 Resp 16 03/11/23 06:55 BP 126/77 03/11/23 06:55 Pulse Ox 98 03/11/23 06:55 FiO2 Intake & Output 03/10/23 03/11/23 03/11/23 18:59 06:59 18:59 Other: Voiding Method Toilet # Voids 3 2 - Exam GENERAL DESCRIPTION: A middle-aged male lying in bed in no distress RESPIRATORY SYSTEM: Unlabored breathing , decreased breath sounds at bases HEART: S1 S2 regular rate and rhythm , ABDOMEN: Soft , no tenderness EXTREMITIES: Right foot swelling and redness has slightly decreased - Labs CBC & Chem 7: 03/11/23 05:49 03/11/23 05:49 Labs: Abnormal Lab Results - Last 24 Hours (Table) 03/10/23 03/10/23 03/11/23 Range/Units 17:03 20:18 05:23 WBC (4.50-10.00) X 10*3/uL RBC (4.40-5.60) X 10*6/uL Hct (39.6-50.0) % MPV (9.5-12.2) FL Carbon Dioxide (22-30) mmol/L Glucose (74-99) mg/dL POC Glucose (mg/dL) 136 H 242 H 154 H (70-110) mg/dL Total Protein (6.3-8.2) g/dL Albumin (3.5-5.0) g/dL 03/11/23 03/11/23 03/11/23 Range/Units 05:49 05:49 11:17 WBC 2.95 L (4.50-10.00) X 10*3/uL RBC 4.29 L (4.40-5.60) X 10*6/uL Hct 38.8 L (39.6-50.0) % MPV 9.3 L (9.5-12.2) FL Carbon Dioxide 21 L (22-30) mmol/L Glucose 151 H (74-99) mg/dL POC Glucose (mg/dL) 175 H (70-110) mg/dL Total Protein 5.8 L (6.3-8.2) g/dL Albumin 3.3 L (3.5-5.0) g/dL Microbiology - Last 24 Hours (Table) 03/08/23 13:03 Anaerobic Culture - Preliminary Foot - Right 03/08/23 13:03 Gram Stain - Final Foot - Right Wound Culture - Final Strep agalactiae - (group b) 03/07/23 19:30 Blood Culture - Preliminary Blood 03/07/23 19:15 Blood Culture - Preliminary Blood Assessment and Plan (1) Osteomyelitis Current Visit: Yes Status: Acute Code(s): M86.9 - OSTEOMYELITIS, UNSPECIFIED SNOMED Code(s): 30051092 (2) Type 2 diabetes mellitus with foot ulcer Current Visit: Yes Status: Acute Code(s): E11.621 - TYPE 2 DIABETES MELLITUS WITH FOOT ULCER; L97.509 - NON-PRESSURE CHRONIC ULCER OTH PRT UNSP FOOT W UNSP SEVERITY SNOMED Code(s): 336892759 Plan: 1patient with extensive right diabetic foot infection with with significant swelling and redness of the right great toe with erythema extending to the dorsal aspect of the right foot with rapid progression is highly suspicious for gram-positive/chest streptococcal infection 2-patient did have CT of the right foot positive for osteomyelitis involving the first and second metatarsal no mention of any abscess 3-patient local culture finalized with group B strep 4-patient to continue with Unasyn , plan is to get a PICC line and Rocephin 2 g daily along with oral Flagyl 6 weeks with close outpatient follow-up Time with Patient: Less than 30
[2023-03-11] MEDS ORDERED: LIDOCAINE 1% INJ 10MG/ML (5 ML VIAL-PF) SQ ONE (12:33)
[2023-03-11 13:17] VITALS: BP 136/84; PULSE 72; TEMP 98.4
--- NOTE | 2023-03-11 14:49 | P.DS ---
Providers Date of admission: 03/07/23 20:39 Expected date of discharge: 03/11/23 Attending physician: Areli Randall MD Consults: 03/07/23 20:39 Consult Physician Routine Consulting Provider: Torrey Pan Consult Reason/Comments: Right great toe and foot infection Do you want consulting provider notified?: Yes 03/08/23 15:45 Consult Physician Routine Consulting Provider: Ruchi Jones Consult Reason/Comments: osteomyelitis, likely chronic w/ infected diabetic ulcer Do you want consulting provider notified?: Yes Primary care physician: Torrey [facility] Course: Discharge Diagnosis: Osteomyelitis secondary to Infected Diabetic ulcer of right foot. Patient discharged home on IV antibiotics with Rocephin 2 g daily 6 weeks along with Flagyl 500 mg 3 times daily 1 month. Thrombocytopenia, resolved. Hyponatremia, resolved. Insulin-dependent diabetes mellitus Hospital Course: Patient is a very pleasant 52-year-old male with a past medical history of type 2 insulin-dependent diabetes mellitus, hypertension, hypothyroidism, and obstructive sleep apnea. Her department on 03/07/23 with a chief complaint of right foot pain, swelling, and infection reported to progressively worsen over the past 2 months despite outpatient treatment with beater room helper. Patient underwent full evaluation in the emergency department. Labs completed and reviewed. CBC showing thrombocytopenia with bili count of 120. Coagulation profile normal findings. BMP revealing mild hyponatremia with sodium of 131 and slight elevation of renal function with BUN 23, creatinine 1.30, and GFR of 63 with baseline creatinine of 1.1. Lactic acid normal findings at 1.1. Glucose 111. Liver profile unremarkable. X-ray right foot showing degenerative changes of the right first digit metacarpal phalangeal joint with osteophyte formation and joint space narrowing, posterior subluxation of the right great toe and soft tissue swelling with subcutaneous gas. Venous Doppler also completed of right lower extremity which was negative for DVT. Patient was started on IV antibiotics of vancomycin and Zosyn and admitted under our services with consultation to vascular surgery and infectious disease. CT right foot completed the radiology report reviewed reporting suspected osteomyelitis involving the first and second digit metatarsal near the heads also suspected involvement of the first and second digit metatarsophalangeal joints with several erosive changes to the first digit phalanx base also suggestive of osteomyelitis accompanied by surrounding soft tissue swelling, posterior subluxation/dislocation of the first digit and metatarsal phalangeal joint. Wound culture is positive for Strep agalactiae-group B. infectious disease following. Vascular surgeon the patient for PICC line placement on 03/11/23. Vascular surgery clearing patient for outpatient follow-up in our office. Infe ctious disease recommending patient continue IV antibiotics with Rocephin 2 g daily 6 weeks. Arrangements have been made for home IV antibiotics. Medically, patient is stable for discharge at this time. Patient follow-up with PCP, vascular surgery, infectious disease, and infusion center. Physical examination: General: non toxic, no distress, appears at stated age Derm: warm, dry Head: atraumatic, normocephalic, symmetric Eyes: EOMI, no lid lag, anicteric sclera Mouth: no lip lesion, mucus membranes moist Cardiovascular: S1S2 reg, no murmur, positive posterior tibial pulse bilateral, Lungs: CTA bilateral, no rhonchi, no rales , no accessory muscle use Abdominal: soft, nontender to palpation, no guarding, no appreciable organomegaly Ext: no gross muscle atrophy, 1+ pitting bilateral lower extremity edema, no contractures. Dressing in place right foot, clean, dry, and intact. Neuro: CN II-XI grossly intact, no focal neuro deficits Psych: Alert, oriented, appropriate affect A total of 34 minutes of time were spent preparing this complex discharge summary. Pt was discharged on 03/11/23 at 2:47 PM. Patient was seen independently by Nurse Practitioner. This document was prepared using [employer] dictation software. Please allow for errors in carpenter helper hardwood flooring while rare they do occur. Ronny Coleman NP rendered care for this patient independently, reviewed the findings and plan as documented in the note above. I did not physically speak with or examine the patient on this date. Patient Condition at Discharge: Stable Plan - Discharge Summary Discharge Rx Participant: Yes New Discharge Prescriptions: New metroNIDAZOLE [Flagyl] 500 mg PO TID #90 tab Continue metFORMIN HCL [Glucophage] 850 mg PO TID-W/MEALS Insulin Glargine,Hum.rec.anlog [Basaglar Kwikpen U-100] 12 unit SQ HS lisinopriL [Prinivil] 20 mg PO DAILY Pioglitazone [Actos] 45 mg PO DAILY Acetaminophen [Tylenol Extra Strength] 1,000 mg PO Q6H PRN PRN Reason: Fever And/ Or Pain Naproxen Sodium [Aleve] 440 mg PO BID PRN PRN Reason: Fever And/ Or Pain Magnesium Oxide [Mag-Ox] 400 mg PO DAILY Levothyroxine Sodium [Synthroid] 200 mcg PO DAILY Empagliflozin [Jardiance] 10 mg PO DAILY Insulin Regular, Human [Novolin R] See Protocol SQ TID-W/MEALS Discharge Medication List metFORMIN HCL [Glucophage] 850 mg PO TID-W/MEALS 10/22/16 [History] Acetaminophen [Tylenol Extra Strength] 1,000 mg PO Q6H PRN 03/07/23 [History] Empagliflozin [Jardiance] 10 mg PO DAILY 03/07/23 [History] Insulin Glargine,Hum.rec.anlog [Basaglar Kwikpen U-100] 12 unit SQ HS 03/07/23 [History] Insulin Regular, Human [Novolin R] See Protocol SQ TID-W/MEALS 03/07/23 [History] Levothyroxine Sodium [Synthroid] 200 mcg PO DAILY 03/07/23 [History] Magnesium Oxide [Mag-Ox] 400 mg PO DAILY 03/07/23 [History] Naproxen Sodium [Aleve] 440 mg PO BID PRN 03/07/23 [History] Pioglitazone [Actos] 45 mg PO DAILY 03/07/23 [History] lisinopriL [Prinivil] 20 mg PO DAILY 03/07/23 [History] metroNIDAZOLE [Flagyl] 500 mg PO TID #90 tab 03/11/23 [Rx] Follow up Appointment(s)/Referral(s): Torrey Mancilla MD [Primary Care Provider] - 1-2 days Tierra Velasco DO [STAFF PHYSICIAN] - As Needed [facility] [NON-STAFF] - As Needed (Office will call you to set up your first teach appointment.) Burke Carl [NON-STAFF] - As Needed (wheelchair) Ruchi Jones MD [STAFF PHYSICIAN] - 2 Weeks Ambulatory/Diagnostic Orders: Basic Metabolic Panel [LAB.AMB] Location: None Selected C Reactive Protein [LAB.AMB] Location: None Selected Complete Blood Count w/diff [LAB.AMB] Location: None Selected Erythrocyte Sedimentation Rate [LAB.AMB] Location: None Selected Patient Instructions/Handouts: How to Care for Your PICC (Peripherally Inserted Central Catheter) (DC), PICC (Peripherally Inserted Central Catheter) (GEN) Activity/Diet/Wound Care/Special Instructions: Activity: As tolerated. Take breaks as needed. Diet: Heart healthy and carb consistent diet. Avoid salts, or foods with hidden salts such as canned or boxed foods and frozen dinners. Extra salt makes your heart work harder and traps the fluid in your body for longer. Special Instructions: Take all of your medications as directed and remember to keep all of your doctor's appointments and follow-up as needed. PICC line has been placed in your being discharged home on IV antibiotics with Rocephin 2 g daily. Arrangements have been made with infusion clinic by case management and infectious disease. He will continue to follow up outpatient with Dr. Jones with infectious disease for long-term monitoring/management of your antibiotic course. Thank you for allowing us to participate in your care, it was truly a pleasure having you for our patient!!! Discharge Disposition: HOME SELF-CARE
[2023-03-11 16:13] LABS: Glucose,Whole Blood 221 mg/dL (70-110)
--- NOTE | 2023-03-11 17:14 | P.PCN ---
Date of Procedure: 03/11/23 Preoperative Diagnosis: right toe osteomyelitis, need for IV antibiotics Postoperative Diagnosis: Same Procedure(s) Performed: Ultrasound guided left basilic vein peripherally inserted central catheter placement Anesthesia: local Surgeon: Isaías Ha Estimated Blood Loss (ml): 2 Pathology: none sent Condition: stable Disposition: floor Indications for Procedure: 52 year old with right toe osteo and diabetic foot infection currently being treated at the hospital with IV Abx presents for elective PICC line placement. Description of Procedure: After written and informed consent was obtained the patient and all risks, benefits and competitions were described the patient was brought [facility] and laid in a supine position with his left arm outstretched on an armboard. The area of the left arm was prepped and draped in usual sterile fashion. Timeout was performed in normal fashion. Utilizing ultrasound the left basilic vein was visualized and shown to be compressible without any visible thrombus. Under ultrasound guidance the basilic vein was then cannulated with a micropuncture needle and wire was placed under direct visualization of fluoroscopy. Introducer sheath was then placed. The single lumen catheter was measured and cut to the appropriate length which was 50 cm. The catheter was then guided through the breakaway sheath and the sheath was removed with good positioning was visualized under fluoroscopy. The catheter was pulled and flushed easily. It was then secured in place in normal fashion. Patient tolerated the procedure well was sent back to his room for recovery.
--- NOTE | 2023-03-12 21:15 | IR ---
EXAMINATION TYPE: IR cvc insert >=5 years DATE OF EXAM: 03/11/2023 CLINICAL HISTORY: Infection. TECHNIQUE: Fluoroscopy. COMPARISON: None. FINDINGS: Fluoroscopic guidance was provided during left sided PICC line insertion procedure perform ed by Dr. Ha. A total of 36 seconds of fluoroscopic time was utilized during the procedure and 52 spot images was acquired. TOTAL DAP = 0.616. IMPRESSION: As Above.
== END 2023-03-11 17:57 | disposition home or self-care (01) | DRG 638 ==
LOC: EC 18:22 → 5NMEDONC 20:39 → 4SSUR 03-08 13:15
PROVIDERS: ADMIT Internal Medicine; ATTEND Internal Medicine
PROC: 02HV33Z Insertion of Infusion Device into Superior Vena Cava, Percutaneous Approach (ICD-10-PCS; principal; 2023-03-11 13:15)
DX: E11.621 Type 2 diabetes mellitus with foot ulcer (principal); E87.1 Hypo-osmolality and hyponatremia; M86.671 Other chronic osteomyelitis, right ankle and foot; E11.69 Type 2 diabetes mellitus with other specified complication; D69.6 Thrombocytopenia, unspecified; L97.514 Non-pressure chronic ulcer of other part of right foot with necrosis of bone; E11.42 Type 2 diabetes mellitus with diabetic polyneuropathy; E11.628 Type 2 diabetes mellitus with other skin complications; E03.9 Hypothyroidism, unspecified; D72.819 Decreased white blood cell count, unspecified; B95.1 Streptococcus, group B, as the cause of diseases classified elsewhere; I10 Essential (primary) hypertension; G47.33 Obstructive sleep apnea (adult) (pediatric); M79.89 Other specified soft tissue disorders; M25.774 Osteophyte, right foot; Z79.84 Long term (current) use of oral hypoglycemic drugs; Z79.890 Hormone replacement therapy; Z79.899 Other long term (current) drug therapy
CPT/HCPCS: 36415; 36569; 36573; 80053; 80202; 82565; 83036; 83605; 83735; 85025; 85027; 85610; 85652; 85730; 86140; 87040; 87070; 87075; 87205; 96365; 96366; 96367; 96368; 96372; 99285